=== PATIENT | female | born 1995 | race Caucasian/White ===

== ENCOUNTER 2017-01-12 01:53 | Emergency (ER) | payer BC, OTHER ==
[~2017-01-12] VITALS: Ht 157.5 cm; Wt 63.5 kg
[~2017-01-12 01:53] MED LIST: CEPH-507 PO; bcp
--- OUTSIDE RECORDS SUMMARY | 2017-01-12 02:03 | XMS REPORT | Continuity of Care Document ---
Author Author [facility] Organization [facility] Address Unknown Phone Unavailable Care Team Providers Care Insurance Rater Name Role Phone NO, LOCAL PHYSICIAN PCP Unavailable Insurance Providers Payer Name Policy Number Subscriber Name Relationship Unknown Advance Directives Directive Response Recorded Date/Time Advance Directives No 07/28/16 1:21am Resuscitation Status Full Code 07/28/16 1:21am Chief Complaint and Reason for Visit Chief Complaint Back Problems Reason for Visit Urinary tract infection Left flank pain Problems Active Problems Medical Problem Onset Date Status Left flank pain Unknown Acute Urinary tract infection Unknown Acute Medications Current Home Medications Medication Dose Units Route Directions Days/Qty Instructions Start Date [Bcp] 07/28/16 Cephalexin 500 Mg 500 Mg Oral Four Times Daily 07/28/16 Social History Social History Problem Response Recorded Date/Time Alcohol Use Denies Use 07/28/2016 1:21am Recreational Drug Use No 07/28/2016 1:21am Recent Foreign Travel No 07/28/2016 1:21am Recent Infectious Disease Exposure No 07/28/2016 1:21am Hospitalization with Isolation Denies 07/28/2016 1:21am Smoking Status Never a Smoker 07/28/2016 1:21am Recent Hopitalizations No 07/28/2016 1:21am Hospitalization with Isolation Denies 07/28/2016 1:21am Query Response Start Date Stop Date Smoking Status Never a Smoker Hospital Discharge Instructions No hospital discharge instructions. Plan of Care Discharge Date 07/28/16 4:01am Disposition 01 HOME, SELF-CARE Condition at Discharge Improved Instructions/Education Provided Urinary Tract Infection in Women (ED) Forms Provided Work Release Form Prescriptions See Medication Section Referrals NO,LOCAL PHYSICIAN - Primary Care Physician Additional Instructions/Education Drink plenty of clear liquids. Follow-up with a primary care provider within the next few days. Contact your doctor in 48 hours to review the urine culture results. This will ensure you're taking the appropriate antibiotic for your particular infection. Return to care if symptoms worsen. You may take Tylenol and/or ibuprofen for pain. Complete the entire course of your antibiotics as prescribed. All discharge instructions reviewed with patient and/or family. Voiced understanding. Functional Status No functional status results. Allergies, Adverse Reactions, Alerts No known allergies. Immunizations No immunization records. Vital Signs Acute Vital Signs Vital Response Date/Time Temperature (Fahrenheit) 97.6 degrees F (97.6 - 99.5) 07/28/2016 1:21am Temperature (Calculated Celsius) 36.54389 degrees C (36.4 - 37.5) 07/28/2016 1:21am Pulse Rate (adult) 68 bpm (60 - 90) 07/28/2016 3:56am Respiratory Rate 18 bpm (12 - 24) 07/28/2016 3:56am O2 Sat by Pulse Oximetry 99 % (88 - 100) 07/28/2016 3:56am Blood Pressure 112/80 mm Hg 07/28/2016 3:56am Blood Pressure Mean 93 mm Hg 07/28/2016 1:21am Pain Numeric Pain Scale 8 07/28/2016 1:21am Height (Feet) 5 feet 07/28/2016 1:21am Height (Inches) 2 inches 07/28/2016 1:21am Height (Calculated Centimeters) 157.321297 cm 07/28/2016 1:21am Weight (Pounds) 140 pounds 07/28/2016 1:21am Weight (Calculated Kilograms) 63.375063 kilograms 07/28/2016 1:21am Capillary Refill Capillary Refill Less Than 3 Seconds 07/28/2016 1:21am Height 5 ft 2 in Weight 140 lb Body Mass Index 25.6 kg/m^2 Results Laboratory Results Test Name Result Units Flags Reference Collection Date/Time Result Date/ Time Comments White Blood Count 10.3 10^3/uL 4.3-11.0 07/28/2016 1:45am 07/28/2016 2: 02am Red Blood Count 4.31 10^6/uL L 4.35-5.85 07/28/2016 1:45am 07/28/2016 2: 02am Hemoglobin 13.6 G/DL 11.5-16.0 07/28/2016 1:4507/28/2016 2:02am Hematocrit 39 % 35-52 07/28/2016 1:07/28/2016 2:02am Mean Corpuscular Volume 90 FL 80-99 07/28/2016 1:07/28/2016 2: 02am Mean Corpuscular Hemoglobin 32 PG 25-34 07/28/2016 1:4507/28/2016 2: 02am Mean Corpuscular Hemoglobin Concent 35 G/DL 32-36 07/28/2016 1:45 2:02am Red Cell Distribution Width 12.5 % 10.0-14.5 07/28/2016 1:2015 2:02am Platelet Count 358 10^3/uL 130-400 07/28/2016 1:07/28/2016 2:02am Mean Platelet Volume 8.8 FL 7.4-10.4 07/28/2016 1:07/28/2016 2: 02am Neutrophils (%) (Auto) 47 % 42-75 07/28/2016 1:07/28/2016 2:02am Lymphocytes (%) (Auto) 41 % 12-44 07/28/2016 1:07/28/2016 2:02am Monocytes (%) (Auto) 9 % 0-12 07/28/2016 1:07/28/2016 2:02am Eosinophils (%) (Auto) 3 % 0-10 07/28/2016 1:07/28/2016 2:02am Basophils (%) (Auto) 0 % 0-10 07/28/2016 1:07/28/2016 2:02am Neutrophils # (Auto) 4.9 X 10^3 1.8-7.8 07/28/2016 1:07/28/2016 2: 02am Lymphocytes # (Auto) 4.2 X 10^3 H 1.0-4.0 07/28/2016 1:07/28/2016 2: 02am Monocytes # (Auto) 0.9 X 10^3 0.0-1.0 07/28/2016 1:4507/28/2016 2: 02am Eosinophils # (Auto) 0.3 10^3/uL 0.0-0.3 07/28/2016 1:45am 07/28/2016 2 :02am Basophils # (Auto) 0.0 10^3/uL 0.0-0.1 07/28/2016 1:45am 07/28/2016 2: 02am Urine Color YELLOW 07/28/2016 1:36am 07/28/2016 2:03am Urine Clarity SLIGHTLY CLOUDY 07/28/2016 1:36am 07/28/2016 2:03am Urine pH 6.5 5-9 07/28/2016 1:36am 07/28/2016 2:03am Urine Specific [place] 1.020 1.016-1.022 07/28/2016 1:36am 2015 2:03am Urine Protein 1+ * NEGATIVE 07/28/2016 1:36am 07/28/2016 2:03am Urine Glucose (UA) NEGATIVE NEGATIVE 07/28/2016 1:36am 07/28/2016 2: 03am Urine RBC (Auto) 4+ * NEGATIVE 07/28/2016 1:36am 07/28/2016 2:03am Urine Ketones NEGATIVE NEGATIVE 07/28/2016 1:36am 07/28/2016 2:03am Urine Nitrite NEGATIVE NEGATIVE 07/28/2016 1:36am 07/28/2016 2:03am Urine Bilirubin NEGATIVE NEGATIVE 07/28/2016 1:36am 07/28/2016 2: 03am Urine Urobilinogen NORMAL MG/DL NORMAL 07/28/2016 1:36am 07/28/2016 2: 03am Urine Leukocyte Esterase 1+ * NEGATIVE 07/28/2016 1:36am 07/28/2016 2: 03am Urine RBC 10-25 /HPF * 07/28/2016 1:36am 07/28/2016 2:39am --- 0238 --- UR RBC (MICRO) previously reported as: Insufficent Quant. /HPF Urine WBC 2-5 /HPF 07/28/2016 1:36am 07/28/2016 2:39am --- 0239 --- UR WBC (MICRO) previously reported as: Insufficent Quant. /HPF Urine Bacteria MODERATE /HPF * 07/28/2016 1:36am 07/28/2016 2:39am -- - 07/28/169 --- UR BACT previously reported as: Insufficent Quant. /HPF Urine Squamous Epithelial Cells 2-5 /HPF 07/28/2016 1:36am 2015 2:39am Urine Crystals NONE /LPF 07/28/2016 1:36am 07/28/2016 2:39am --- 9 --- UR CRYSTALS previously reported as: Insufficent Quant. /LPF Urine Casts NONE /LPF 07/28/2016 1:36am 07/28/2016 2:39am --- 07/289 --- UR CASTS previously reported as: Insufficent Quant. /LPF Urine Mucus NEGATIVE /LPF 07/28/2016 1:36am 07/28/2016 2:39am --- 07/28/169 --- UR MUCOUS previously reported as: Insufficent Quant. /LPF Urine Culture Indicated NO 07/28/2016 1:36am 07/28/2016 2:03am Sodium Level 141 MMOL/L 135-145 07/28/2016 1:45am 07/28/2016 2:22am Potassium Level 4.1 MMOL/L 3.6-5.0 07/28/2016 1:45am 07/28/2016 2:22am Chloride Level 110 MMOL/L H 98-107 07/28/2016 1:45am 07/28/2016 2:22am Carbon Dioxide Level 21 MMOL/L 21-32 07/28/2016 1:45am 07/28/2016 2: 22am Anion Gap 10 MMOL/L 5-14 07/28/2016 1:45am 07/28/2016 2:22am Blood Urea Nitrogen 12 MG/DL 7-18 07/28/2016 1:45am 07/28/2016 2:22am Creatinine 0.81 MG/DL 0.60-1.30 07/28/2016 1:45am 07/28/2016 2:22am BUN/Creatinine Ratio 15 07/28/2016 1:45am 07/28/2016 2:22am Estimat Glomerular Filtration Rate > 60 07/28/2016 1:45am 2015 2:22am GFR INTERPRETIVE DATA UNITS FOR ESTIMATED GFR (eGFR): mL/min/1.73 M2 REFERENCE RANGE FOR ESTIMATED GFR (eGFR) eGFR NORMAL eGFR >60 MODERATELY DECREASED eGFR 30-59 SEVERLY DECREASED eGFR 15-29 KIDNEY FAILURE <15 (OR DIALYSIS) Glucose Level 113 MG/DL H 70-105 07/28/2016 1:45am 07/28/2016 2:22am Calcium Level 9.2 MG/DL 8.5-10.1 07/28/2016 1:45am 07/28/2016 2:22am Total Bilirubin 0.3 MG/DL 0.1-1.0 07/28/2016 1:45am 07/28/2016 2:22am Alkaline Phosphatase 71 U/L 40-136 07/28/2016 1:45am 07/28/2016 2:22am Aspartate Amino Transf (AST/SGOT) 14 U/L 5-34 07/28/2016 1:45am 2015 2:22am Alanine Aminotransferase (ALT/SGPT) 12 U/L 0-55 07/28/2016 1:45am 07/28 2:22am Total Protein 6.6 G/DL 6.4-8.2 07/28/2016 1:45am 07/28/2016 2:22am Albumin 3.9 G/DL 3.2-4.5 07/28/2016 1:45am 07/28/2016 2:22am Lipase 28 U/L 8-78 07/28/2016 1:4507/28/2016 2:22am Procedures No known history of procedures. Encounters Encounter Location Arrival/Admit Date Discharge/Depart Date Attending Provider Departed Emergency Room [facility] 07/28/16 1:15am 07/28 4:01am GILLIAN YARBROUGH MD Recent Diagnosis
[2017-01-12] MEDS ORDERED: RX-HYOSCYAMINE 0.125 MG SL (LEVSIN) PPK#6 SL STA (02:18)
[2017-01-12] MEDS ORDERED: KETOROLAC 60 MG/2 ML VIAL IM STA (02:18)
[2017-01-12] MEDS ORDERED: HYOSCYAMINE 0.125 MG (LEVSIN) TAB SL ONE (02:30)
--- NOTE | 2017-01-12 02:31 | ED GI ---
General Chief Complaint: Abdominal/GI Problems Stated Complaint: VOMITING,DIARRHEA,CRAMPS,RUNNY NOSE Nursing Triage Note: patient reports having abdomen cramps and starting her menstrual period. patient reports she woke up and had 'explosive' diarrhea and felt like she was going to pass out, patient reports she then vomited x 1. Sepsis Screen: No Definite Risk Source of Information: Patient Exam Limitations: No Limitations History of Present Illness Time Seen By Provider: 02:00 Initial Comments Here with report of abdominal cramping after just starting her menstrual period complicated by the fact that she started having diarrhea and vomiting tonight. Reports that during the diarrhea, which was reportedly explosive, she was also having diarrhea. This is associated with cold sweats and she felt like she was going pass out. Currently the vomiting and diarrhea are better but she still has menstrual cramps. Reports that she gets anxiety when she has to vomit. Denies blood in vomit or stool. She did take 800 mg ibuprofen for her menstrual cramps but is very sure that she vomited that up. Timing/Duration: 1-3 Hours Severity/Quality: Moderate, Cramping Location: Generalized Abdomen (associated with diarrhea), Suprapubic (menstrual ) Radiation: No Radiation Modifying Factors: Worsens With Defecating Associated Symptoms: Nausea/Vomiting Weakness Allergies and Home Medications Allergies Coded Allergies: No Known Drug Allergies (Unverified , 07/28/16) Home Medications No Active Prescriptions or Reported Meds Review of Systems Constitutional: see HPINo chills, No fever EENTM: No Symptoms Reported Respiratory: No Symptoms Reported Cardiovascular: See HPI Lightheadedness Syncope Gastrointestinal: See HPI Abdominal Pain Diarrhea Nausea Vomiting Genitourinary: See HPI Musculoskeletal: no symptoms reported Psychiatric/Neurological: See HPI AnxietyDenies Headache Past Krbotve-Diywvm-Tjyshh Hx Patient Social History Alcohol Use: Denies Use Recreational Drug Use: No Smoking Status: Never a Smoker Recent Foreign Travel: No Contact w/Someone Who Travel: No Recent Infectious Disease Expo: No Recent Hopitalizations: No Surgeries HX Surgeries: Yes (back) Surgeries: Orthopedic Respiratory Hx Respiratory Disorders: No Cardiovascular Hx Cardiac Disorders: No Neurological Hx Neurological Disorders: No Reproductive System Hx Reproductive Disorders: No Genitourinary Hx Genitourinary Disorders: Yes (history of urinary tract infections) Gastrointestinal Hx Gastrointestinal Disorders: Yes (history of C. difficile) Musculoskeletal Hx Musculoskeletal Disorders: Yes Musculoskeletal Disorders: Scoliosis Endocrine Hx Endocrine Disorders: No HEENT HX ENT Disorders: No Cancer Hx Cancer: No Psychosocial Hx Psychiatric Problems: No Integumentary HX Skin/Integumentary Disorder: No Blood Transfusions Hx Blood Disorders: No Reviewed Nursing Assessment Reviewed/Agree w Nursing PMH: Yes Physical Exam Vital Signs VS - Last 72 Hours, by Label 01/12/17 02:08 Temp 98.4 Pulse 74 Resp 18 B/P 117/68 Pulse Ox 100 O2 Delivery Room Air Capillary Refill : Less Than 3 Seconds General Appearance: WD/WN no apparent distress HEENT: PERRL/EOMI pharynx normal Neck: full range of motion supple Respiratory: lungs clear normal breath sounds Cardiovascular: regular rate, rhythm no murmur Gastrointestinal: non tender soft Extremities: non-tender normal inspection Back: normal inspection no CVA tenderness no vertebral tenderness Neurologic/Psychiatric: alert oriented x 3 Skin: normal color warm/dry Progress/Results/Core Measures Results/Orders My Orders Orders-CHIKA ECHEVARRIA MD Hyoscyamine Sl Tablet (Levsin Sl Tablet) (01/12/17 02:30) Ketorolac Injection (Toradol Injection) (01/12/17 02:18) Rx-Hyoscyamine Tab (Rx-Levsin Sl) (01/12/17 02:18) Urine Bedside (01/12/17 02:19) Medications Given in ED Current Medications Medications Dose Ordered Sig/Dedrick Route Start Time Stop Time Status Last Admin Dose Admin Hyoscyamine Sulfate 0.125 mg ONCE ONCE SL 01/12/17 02:30 01/12/17 02:31 DC 01/12/17 02:26 0.125 MG Vital Signs/I&O Vital Sign - Last 12Hours 01/12/17 02:08 Temp 98.4 Pulse 74 Resp 18 B/P 117/68 Pulse Ox 100 O2 Delivery Room Air Blood Pressure Mean: 84 Point of Care Testing Urine -Bedside: Negative Progress Note : Progress Note Seen and evaluated. We discussed different treatment options. We will try Toradol 60 mg IM for her menstrual cramps. Levsin 0.125 mg by mouth for the abdominal cramping associated with diarrhea. She declined Zofran because she states that she feels like she has to vomit when she takes that but then can't and that increases her anxiety. She would appreciate Levsin go pack. This was given. Discharged home with return precautions. Patient verbalize understanding of instructions and agreement with plan. Departure Impression Impression: Primary Impression: Menstrual cramps Additional Impression: Nausea vomiting and diarrhea Disposition: HOME, SELF-CARE Condition: Stable Departure-Patient Inst. Decision time for Depature: 02:30 Referrals: NO,LOCAL PHYSICIAN (PCP/Family) Primary Care Physician Patient Instructions: Diarrhea in Adolescents and Adults, Menstrual Cramps (DC) , Nausea and Vomiting, Adult (DC) Add. Discharge Instructions: All discharge instructions reviewed with patient and/or family. Voiced understanding. Clear liquid diet for 24 hours and then advance as tolerated. Follow-up with your Dr. in a few days for recheck. Return for worse pain, fever, vomiting, weakness, breathing problems or other concerns as needed. He may take ibuprofen 800 mg every 8 hours as needed for pain. You may take Tylenol 1000 mg every 8 hours as needed for pain. Drink plenty of fluids by taking small sips frequently. Scripts No Active Prescriptions or Reported Meds CHIKA ECHEVARRIA MD Jan 12, 2017 02:31
[2017-01-12 02:53] VITALS: BP 117/68
== END 2017-01-12 02:53 | disposition home or self-care (01) ==
LOC: EDUNIT# 01:53 → ER 01:58
DX: N94.6 Dysmenorrhea, unspecified (principal); R11.2 Nausea with vomiting, unspecified; R19.7 Diarrhea, unspecified
CPT/HCPCS: 84703; 96372; 99282

== ENCOUNTER → 2019-03-28 | Outpatient (CLI) | payer BC ==
--- NOTE | 2019-03-28 15:13 | Diagnostic Imaging Report ---
PROCEDURE: US Non-ob pelvis comp/trans. TECHNIQUE: Multiple realtime grayscale images were obtained of the pelvis in various projections endovaginally. Transabdominal imaging was also performed. INDICATION: Chronic pelvic pain. FINDINGS: Uterus measures 8.2 x 3.5 x 3.7 cm. Endometrium is 4 mm in thickness. No myometrial mass is detected. Right ovary measures 3.8 x 2.7 x 2.7 cm and the left ovary measures 4.3 x 2.5 x 2.3 cm. Left ovary contains small follicles and does demonstrate blood flow. There appears to be a probable complex cyst involving the right ovary approximately 2.1 x 1.6 cm in size. There is blood flow to the right ovary. There is some free fluid in the cul-de-sac. IMPRESSION: Probable hemorrhagic cyst involving the right ovary. No other significant abnormality is detected. Dictated by: Dictated on workstation # [id number]
== END ==
LOC: RAD 10:57
PROVIDERS: ATTEND Obstetrics & Gynecology
DX: G89.29 Other chronic pain (principal); R10.2 Pelvic and perineal pain
CPT/HCPCS: 76830; 76856

== ENCOUNTER 2019-05-09 05:56 | Outpatient (CLI) | payer BC ==
[~2019-05-09] VITALS: Ht 157.5 cm; Wt 81.6 kg
== END 2019-05-09 15:15 | disposition home or self-care (01) ==
LOC: PREOP 05:56
PROVIDERS: ATTEND Obstetrics & Gynecology
DX: Z01.818 Encounter for other preprocedural examination (principal)

== ENCOUNTER 2019-05-17 06:52 | Day surgery (SDC) | payer BC ==
[2019-05-17] VITALS (11 sets, daily range): BP systolic 93–120; BP diastolic 40–76
[~2019-05-17] VITALS: Ht 157.5 cm; Wt 81.6 kg
--- NOTE | 2019-05-17 07:02 | Progress Note-Pre Operative ---
Pre-Operative Progress Note H&P Reviewed The H&P was reviewed, patient examined and no changes noted. Date Seen by Provider: May 17, 2019 Time Seen by Provider: 07:05 Date H&P Reviewed: May 17, 2019 Time H&P Reviewed: 07:05 Pre-Operative Diagnosis: MELVA MARAVILLA DO May 17, 2019 7:02 am
[2019-05-17] MEDS ORDERED: MIDAZOLAM 2 MG/2 ML (VERSED) VIAL ONE ×2 (07:08→08:17)
[2019-05-17] MEDS ORDERED: MIDAZOLAM 2 MG/2 ML (VERSED) VIAL IV ONE (07:15)
[2019-05-17] MEDS ORDERED: D5 LR IV SOLUTION 1,000 ML IV SCH (07:28)
[2019-05-17] MEDS: LACTATED RINGERS 1,000 ML IV PRN ×2 (07:29→10:07)
[2019-05-17] MEDS ORDERED: HYDROcodone/APAP 5 MG/325 MG (LORTAB) TAB PO PRN (07:30)
[2019-05-17] MEDS ORDERED: ONDANSETRON 4 MG/2 ML (SDV) Z0FRAN IVP PRN ×2 (07:30→10:30)
[2019-05-17] MEDS ORDERED: KETOROLAC 30 MG/ML VIAL IVP ONE (07:30)
[2019-05-17 07:46] LABS: BASOPHILS % (AUTO) 0 % (0-10); EOSINOPHILS # (AUTO) 0.1 10^3/uL (0.0-0.3); EOSINOPHILS % (AUTO) 1 % (0-10); HEMATOCRIT 40 % (35-52); HEMOGLOBIN 13.6 G/DL (11.5-16.0); LYMPHOCYTES % (AUTO) 29 % (12-44); MEAN CORPUSCULAR HEMOGLOBIN 31 PG (25-34); MEAN CORPUSCULAR HGB CONC 34 G/DL (32-36); MEAN CORPUSCULAR VOLUME 90 FL (80-99); MEAN PLATELET VOLUME 8.8 FL (7.4-10.4); MONOCYTES # (AUTO) 0.8 X 10^3 (0.0-1.0); MONOCYTES % (AUTO) 11 % (0-12); NEUTROPHILS % (AUTO) 58 % (42-75); PLATELET COUNT 322 10^3/uL (130-400); RED CELL DISTRIBUTION WIDTH 13.5 % (10.0-14.5); WHITE BLOOD COUNT 6.9 10^3/uL (4.3-11.0)
[2019-05-17] MEDS ORDERED: fentaNYL INJECTION 100 MCG/2 ML AMP ONE (08:17)
--- NOTE | 2019-05-17 08:55 | Discharge Inst-Women's Service ---
Discharge Inst-Women's Serv Depart Medication/Instructions New, Converted or Re-Newed RX: RX on Chart Consults/Follow Up Additional Follow Up: Yes Orders/Referrals Dr. Carlson in 7-10 days Activity Activity: Activity as Tolerated Driving Instructions: No Driving for 1 Week NO SMOKING: NO SMOKING Nothing Inside Vagina: No Douching, No [place], No Tampons Diet Discharge Diet: No Restrictions Symptoms to Report to : Bleeding Excessive, Pain Increased, Fever Over 101 Degrees F, Vaginal Bleeding Increase, Questions/Concerns For Any Problems or Questions: Contact Your Physician Skin/Wound Care Infection Signs and Symptoms: Increased Redness, Foul Odor of Wound, Increased Drainage, Skin Itchy or Has a Rash, Increased Swelling, Temperature Above 101 F Operative Area Clean and Dry: Keep Incision Clean/Dry Stitches/Ellen/Dermabond: Dermabond, Care of Stitches Bathing Instructions: MELVA Carranza DO May 17, 2019 08:55
[2019-05-17] MEDS ORDERED: METHYLENE BLUE 0.5% (PROVAYBLUE) 50 mg/10 ml vial IV ONE (08:57)
[2019-05-17] MEDS ORDERED: BUPIVACAINE 0.25% 30 ML (SENSORCAINE) VIAL ONE (08:57)
[2019-05-17] MEDS ORDERED: LIDOCAINE PF 2% 5 ML (XYLOCAINE) VIAL ONE (08:59)
[2019-05-17] MEDS ORDERED: ONDANSETRON 4 MG/2 ML (SDV) Z0FRAN ONE (08:59)
[2019-05-17] MEDS ORDERED: DEXAMETHASONE 10 MG/ML (DECADRON) 1 ML VIAL ONE (08:59)
[2019-05-17] MEDS ORDERED: ROCURONIUM 10 MG/ML 5 ML SYRINGE IV ONE (08:59)
[2019-05-17] MEDS ORDERED: SEVOFLURANE (ULTANE) 15 ML INHAL SOLN ONE (08:59)
[2019-05-17] MEDS ORDERED: proPOfol 200 MG/20 ML (DIPRIVAN) VIAL IV ONE (08:59)
[2019-05-17] MEDS ORDERED: NEOSTIGMINE 3 MG/3 ML VIAL ONE (09:01)
[2019-05-17] MEDS ORDERED: GLYCOPYRROLATE 0.2 MG/ML (ROBINUL) 2 ML VIAL ONE ×2 (09:01→09:47)
[2019-05-17] MEDS ORDERED: IBUP-1773 PO (09:06)
[2019-05-17] MEDS ORDERED: ACHD5005 PO (09:06)
[2019-05-17] MEDS ORDERED: DOCU-143 PO (09:06)
[2019-05-17] MEDS ORDERED: HYDROmorphone 2 MG/ML VIAL (DILAUDID) ONE (09:56)
[2019-05-17] MEDS ORDERED: KETOROLAC 30 MG/ML VIAL ONE (10:00)
[2019-05-17] MEDS ORDERED: HYDROmorphone 2 MG/ML VIAL (DILAUDID) IV ONE (10:30)
--- NOTE | 2019-05-17 14:14 | Anesthesia-General Post-Op ---
General Patient Condition Mental Status/LOC: Same as Preop Cardiovascular: Satisfactory Nausea/Vomiting: Absent Respiratory: Satisfactory Pain: Controlled Complications: Absent Post Op Complications Complications None Follow Up Care/Instructions Patient Instructions None needed. Anesthesia/Patient Condition Patient Condition Patient is doing well, no complaints, stable vital signs, no apparent adverse anesthesia problems. No complications reported per nursing. MAGALIE DUNCAN CRNA May 17, 2019 14:14
--- NOTE | 2019-05-17 14:45 | OPERATIVE REPORT ---
DATE OF SERVICE: PREOPERATIVE DIAGNOSES: 1. A 23-year-old female with chronic pelvic pain. 2. Dyspareunia. 3. Unexplained infertility. POSTOPERATIVE DIAGNOSES: 1. A 23-year-old female with chronic pelvic pain. 2. Dyspareunia. 3. Unexplained infertility. 4. Endometriosis of the posterior pelvic peritoneum, uterosacral ligaments and ovarian fossa. PROCEDURE: Laparoscopic cauterization of endometriosis, peritoneal biopsies of endometriosis and chromotubation. SURGEON: Jairo Carlson DO ANESTHESIA: General endotracheal. ESTIMATED BLOOD LOSS: Minimal. URINE OUTPUT: 75 mL clear at the end of the procedure. FLUIDS: 1000 mL lactated Ringer's solution. FINDINGS: Grossly normal appearing serosal surface of the uterus itself, grossly normal appearing fallopian tubes with spillage only from the right fallopian tube, grossly normal appearing bilateral ovaries with evidence of endometriosis implants on some of the ovaries as well as the ovarian fossa extending down into the posterior cul-de-sac. SPECIMENS SENT: Peritoneal biopsies. INDICATIONS FOR PROCEDURE: This 23-year-old female is a patient established care with me with annual well woman visit. She followed up with me shortly thereafter with concerns of ongoing chronic pelvic pain. We discussed the possibility of endometriosis as her ultrasound was negative. Risks of laparoscopic diagnostic procedure as well as chromotubation was reviewed with the patient as well as indications in the preoperative H and P, this is detailed. All of her questions were again answered and reviewed in the preoperative area and after all her questions were answered, consent was obtained and the patient was taken to the operating room. OPERATIVE REPORT IN DETAIL: Once in the operating room, anesthesia was found to be adequate. She was placed in dorsal lithotomy position, prepped and draped in normal sterile fashion. A timeout was performed. Donnelly catheter was placed using sterile technique. Weighted speculum was inserted in the patient's vagina. Right angle retractor was utilized for cervix, which was grasped at 12 o'clock position using a long Allis clamp. I then placed a uterine sound to approximately a depth of 8 cm into the cervix. I then removed the uterine sound and dilated the cervix using Hegar dilators to maximum dilatation approximately 4 mm, which allows me to place the Kronner uterine manipulator, which I then placed in the uterine cavity and deployed using the manipulator balloon. I connected methylene blue dye to the tip of my Kronner uterine manipulator for chromotubation later in the procedure. All the other instruments were removed from the patient's vagina. I performed change of gloves, took my attention to the abdomen where infraumbilically I infiltrated this area using 0.25% Marcaine and make a 5 mm incision and directed with Veress needle through the incision until intraperitoneal placement was confirmed using saline drop test. I proceeded with insufflation using CO2 gas and opening pressure of 4 mmHg was noted. I proceeded to maximum pressure of 15 mmHg, at which point I removed the Veress needle and introduced a 5 mm blunt laparoscopic trocar. Once this was in place, I am able to confirm intraperitoneal placement using the laparoscope. There was no evidence of damage upon my entry site and there is grossly normal appearing upper abdominal anatomy photos obtained. The pelvis was then identified and the patient placed in steep Trendelenburg. I started the procedure by addressing the endometriosis implants which I first biopsy using a grasper through the second trocar site which I placed suprapubically in the similar fashion. This was also 5 mm trocar site. Once these are removed, I then cauterized the peritoneal edges and the other endometriosis implants that I identify in the pelvic peritoneum. Once all of these were done, I then performed a chromotubation using the methylene blue as previously described. There is easily some resistance; however, it is broken and the right tube spills dye, the left tube fails to show any evidence of patency. I then copiously irrigated the pelvis using normal saline. There was no active bleeding noted from any of my dissection planes. As the patient taken out of steep Trendelenburg, I removed insufflation and all the laparoscopic trocars. I then introduced 10 mL of 0.25% Marcaine into the peritoneal cavity for postoperative pain management and removed the trocars as well. The skin was reapproximated using Dermabond. The Kronner uterine manipulator was removed. Donnelly catheter was removed. The patient tolerated the procedure well and sent to recovery area in stable condition. Lap and sponge counts were correct at the end of the procedure. Instrument count was correct as well. Job ID: [id number] DocumentID: [id number] Dictated Date: 05/17/2019 10:56:48 Field Laborer Date: 05/17/2019 14:44:17 Dictated By: DO MISHA FINE
== END 2019-05-17 12:25 | disposition home or self-care (01) ==
LOC: SDC 06:52
PROVIDERS: ATTEND Obstetrics & Gynecology
DX: N80.3 Endometriosis of pelvic peritoneum (principal); N80.1 Endometriosis of ovary; N80.0 Endometriosis of uterus; N97.9 Female infertility, unspecified; Z11.2 Encounter for screening for other bacterial diseases; Z80.3 Family history of malignant neoplasm of breast; K21.9 Gastro-esophageal reflux disease without esophagitis; F41.9 Anxiety disorder, unspecified; M54.9 Dorsalgia, unspecified; E66.01 Morbid (severe) obesity due to excess calories; Z68.33 Body mass index [BMI] 33.0-33.9, adult
CPT/HCPCS: 36415; 84703; 85025; 86850; 86900; 86901; 87081; 88305; 94664

== ENCOUNTER 2021-10-31 12:39 | Emergency (ER) | payer BC ==
[~2021-10-31] VITALS: Ht 157 cm; Wt 83.9 kg
[~2021-10-31 12:39] MED LIST changes: +ACHD5005 PO; +DOCU-143 PO; +IBUP-1773 PO
--- NOTE | 2021-10-31 13:08 | ED GU-Female ---
General Chief Complaint: OB < 20 WEEKS Stated Complaint: VAG BLEEDING 11 WKS PREG Nursing Triage Note: Pt to ED c/o vaginal bleeding onset today. Pt is 11 weeks . Denies abd cramping, does report back pain. Source: patient Exam Limitations: no limitations History of Present Illness Date Seen by Provider: Oct 31, 2021 Time Seen by Provider: 13:00 Initial Comments Patient is a 26-year-old female who presents to the emergency department today with a chief complaint of low back pain which awoke her from sleep this morning and an onset of vaginal bleeding this morning that she states was "like a period". She is approximately 11 weeks and 2 days , G1, P0. History of severe endometriosis with previous laparoscopic surgery to remove endometrial implants. She has seen Dr. Carlson for care. She is currently on a vitamin as well as progesterone supplementation for her . She did not take any Tylenol this morning and does not request any at this time. She denies burning with urination, frequency or urgency. No diarrhea. No recent illnesses, fevers, chills, cough or congestion. No Covid concerns. All other review of systems reviewed and negative except as stated. Timing/Duration: this morning Severity/Quality: moderate Location: other (low back pain) Radiation: none Activities at Onset: none Associated Symptoms: denies symptoms Allergies and Home Medications Allergies Coded Allergies: No Known Drug Allergies (Unverified , 05/09/19) Patient Home Medication List Home Medication List Reviewed: Yes Docusate Sodium (Colace) 100 Mg Capsule, 100 MG PO BID PRN for CONSTIPATION-1ST LINE Prescribed by: MELVA CARLSON on 05/17/19905 Hydrocodone Bit/Acetaminophen (Lortab 5 Mg Tablet) 1 Tab Tab, 2 TAB PO Q6HR PRN for PAIN-MODERATE Prescribed by: MELVA CARLSON on 05/17/19905 Ibuprofen (Ibuprofen) 600 Mg Tablet, 600 MG PO Q6H Prescribed by: MELVA CARLSON on 05/17/19905 Review of Systems Review of Systems Constitutional: see HPI EENTM: no symptoms reported Respiratory: no symptoms reported Cardiovascular: no symptoms reported Gastrointestinal: no symptoms reported Genitourinary: denies burning, denies frequency; other (vaginal bleeding) : Yes LMP: Aug 13, 2021 Musculoskeletal: back pain Skin: no symptoms reported Psychiatric/Neurological: Depressed All Other Systemes Reviewed Negative Unless Noted: Yes Past Toewgcc-Iixlpf-Okvozu Hx Patient Social History Tobacco Use?: No Substance use?: No Alcohol Use?: No Immunizations Up To Date Influenza Vaccine Up-to-Date: No; Not Current Second COVID19 Vaccination Roman: April COVID19 Vaccine Adaptive Physical Educator: Modernedvin Seasonal Allergies Seasonal Allergies: Yes Past Medical History Surgeries: Yes (SPINAL FUSION, REMOVAL OF HARDWARE) Orthopedic Respiratory: No Cardiac: No Neurological: No Reproductive Disorders: No Female Reproductive Disorders: Ovarian Cyst Sexually Transmitted Disease: No HIV/AIDS: No Genitourinary: No Gastrointestinal: Yes Gastroesophageal Reflux, Chronic Constipation, Chronic Diarrhea Musculoskeletal: Yes Scoliosis, Chronic Back Pain Endocrine: No HEENT: Yes (GLASSES/CONTACTS) Loss of Vision: Denies Hearing Impairment: Denies Cancer: No Psychosocial: Yes Anxiety Integumentary: No Blood Disorders: Yes (HX ANEMIA) Adverse Reaction/Blood Tranf: No (HAS HAD BLOOD WITH NO REACTION) Physical Exam Vital Signs Vital Signs - First Documented 10/31/21 12:56 Temp 36.8 Pulse 83 Resp 16 B/P (MAP) 131/85 (100) Pulse Ox 97 O2 Delivery Room Air Capillary Refill : Less Than 3 Seconds Height, Weight, BMI Height: 5'2.00" Weight: 180lbs. 0.0oz. 81.853269qn; 34.00 BMI Method:Stated General Appearance: WD/WN, mild distress (teaful and upset) HEENT: PERRL/EOMI Neck: normal inspection Cardiovascular: regular rate, rhythm Respiratory: lungs clear, normal breath sounds, no respiratory distress, no accessory muscle use Gastrointestinal: normal bowel sounds, non tender, soft Extremities: normal range of motion, non-tender, normal inspection Neurologic/Psychiatric: no motor/sensory deficits, alert, normal mood/affect, oriented x 3, other (tearful and anxious) Skin: normal color, warm/dry Progress/Results/Core Measures Suspected Sepsis SIRS Temperature: Pulse: 83 Respiratory Rate: 16 Laboratory Tests 10/31/21 13:19: White Blood Count 10.1 Blood Pressure 131 /85 Mean: 100 Laboratory Tests 10/31/21 13:19: Platelet Count 300 Results/Orders Lab Results Laboratory Tests Test 10/31/21 13:19 10/31/21 13:21 Range/Units White Blood Count 10.1 4.3-11.0 10^3/uL Red Blood Count 4.69 3.80-5.11 10^6/uL Hemoglobin 14.6 11.5-16.0 g/dL Hematocrit 44 35-52 % Mean Corpuscular Volume 93 80-99 fL Mean Corpuscular Hemoglobin 31 25-34 pg Mean Corpuscular Hemoglobin Concent 33 32-36 g/dL Red Cell Distribution Width 12.4 10.0-14.5 % Platelet Count 300 130-400 10^3/uL Mean Platelet Volume 8.4 L 9.0-12.2 fL Immature Granulocyte % (Auto) 0 % Neutrophils (%) (Auto) 67 42-75 % Lymphocytes (%) (Auto) 24 12-44 % Monocytes (%) (Auto) 8 0-12 % Eosinophils (%) (Auto) 1 0-10 % Basophils (%) (Auto) 1 0-10 % Neutrophils # (Auto) 6.8 1.8-7.8 10^3/uL Lymphocytes # (Auto) 2.4 1.0-4.0 10^3/uL Monocytes # (Auto) 0.8 0.0-1.0 10^3/uL Eosinophils # (Auto) 0.1 0.0-0.3 10^3/uL Basophils # (Auto) 0.1 0.0-0.1 10^3/uL Immature Granulocyte # (Auto) 0.0 0.0-0.1 10^3/uL Human Chorionic Gonadotropin, Quant 6551 H <5 MIU/ML Urine Color YELLOW Urine Clarity CLEAR Urine pH 7.5 5-9 Urine Specific Barton 1.020 1.016-1.022 Urine Protein NEGATIVE NEGATIVE Urine Glucose (UA) NEGATIVE NEGATIVE Urine Ketones NEGATIVE NEGATIVE Urine Nitrite NEGATIVE NEGATIVE Urine Bilirubin NEGATIVE NEGATIVE Urine Urobilinogen 0.2 < = 1.0 MG/DL Urine Leukocyte Esterase NEGATIVE NEGATIVE Urine RBC (Auto) 3+ H NEGATIVE Urine RBC 2-5 H /HPF Urine WBC NONE /HPF Urine Squamous Epithelial Cells 2-5 /HPF Urine Crystals PRESENT H /LPF Urine Amorphous Sediment LARGE TALA PHOSPHATE H /LPF Urine Bacteria TRACE /HPF Urine Casts NONE /LPF Urine Mucus NEGATIVE /LPF Urine Culture Indicated NO My Orders Orders - IZZY CAMACHO MD Abo Rh Type (10/31/21 13:07) Cbc With Automated Diff (10/31/21 13:07) Ua Culture If Indicated (10/31/21 13:07) Hcg,Quantitative (10/31/21 13:07) Us Ob<14 Wks Sngle W/Transvag (10/31/21 13:16) Vital Signs/I&O Capillary Refill : Less Than 3 Seconds Blood Pressure Mean: 100 Progress Note #1: Time: 13:52 Progress Note Patient reports that she had serial beta quant's done early in her and reports that she had measurements as high as 33,000. Her beta quant today is 6000. Pending ultrasound but I suspect that we are dealing with a miscarriage. Will discuss with Dr. Carlson after she has her ultrasound. Blood type is O+ she does not require RhoGam administration. Hemoglobin is stable, vital signs are stable. Progress Note #2: Time: 15:23 Progress Note Patient's ultrasound did not show any heart motion. She is measuring out at approximately 9 weeks versus her estimated gestational age by dates of 11 weeks and 2 days. demise. Her quant has decreased from around the 33,000 Chip per patient down to 6000. I did call and speak with Dr. Carlson. He advi sed me to advised the patient to call his office first thing Tuesday morning and he would see her in clinic. He indicated he was fine with deferring a pelvic exam until he sees her on Tuesday. I had a discussion with the patient and her . I have given her return precautions. We had a nice talk. Patient seems calm. All questions were sought and answered. Diagnostic Imaging Diagonstic Imaging: Ultrasound Comments [facility], [place] NAME: ZHOU CALIXTO [facility] REC#: [id number] PT STATUS: REG ER : 1995 PHYSICIAN: IZZY CAMACHO MD ADMIT DATE: 10/31/21/ER Signed Date of Exam:10/31/21 US OB<14 WKS SNGLE W/TRANSVAG TECHNIQUE: Live grayscale and color Doppler ultrasound was performed over the gravid uterus. Transabdominal and transvaginal images were obtained. REASON FOR EXAM: Vaginal bleeding. COMPARISON: None. FINDINGS: A single intrauterine gestation is present with a CRL of 2.2 cm. This corresponds with an estimated gestational age of 9 weeks 0 days and SARKIS of 06/05/2022. heart tones were not observed. A yolk sac is visualized. The gestational sac demonstrates normal contours and double decidual reaction. The bilateral ovaries are well visualized and have a normal appearance. The right ovary measures 3.1 x 2.4 x 2.8 cm. The left ovary measures 2.6 x 1.9 x 2.9 cm. No free fluid is visualized within the posterior cul-de-sac. IMPRESSION: Findings are diagnostic for failed given the lack of heart tones in size of the crown-rump length. However, follow-up may still be indicated as there is reported difficulty in acquiring heart tones by the membership director. Recommend continued follow-up with serial beta hCGs and pelvic ultrasound. Dictated by: Dictated on workstation # [id number] Dict: 10/31/21 1540 Trans: 10/31/21 1551 [facility] [id number] Interpreted by: JORDYN CASANOVA DO Electronically signed by: JORDYN CASANOVA DO 10/31/21 1551 Departure Impression Primary Impression: Miscarriage Disposition: HOME, SELF-CARE Condition: Stable Departure-Patient Inst. Decision time for Depature: 15:24 Referrals: MELVA CARLSON,LOCAL PHYSICIAN (PCP) Primary Care Physician Patient Instructions: Miscarriage (DC) Add. Discharge Instructions: Drink plenty of fluids to stay well-hydrated. You can take Tylenol and/or ibuprofen as needed for cramping. Return to the emergency department for any severe pain, excessive vaginal bleeding, fevers or other emergent concerning symptoms. Please call Dr. Carlson's office first thing Tuesday morning for a follow-up appointment. IZZY CAMACHO MD Oct 31, 2021 13:08
[2021-10-31 13:24] LABS: BASOPHILS # (AUTO) 0.1 10^3/uL (0.0-0.1); BASOPHILS % (AUTO) 1 % (0-10); EOSINOPHILS # (AUTO) 0.1 10^3/uL (0.0-0.3); EOSINOPHILS % (AUTO) 1 % (0-10); HEMATOCRIT 44 % (35-52); HEMOGLOBIN 14.6 g/dL (11.5-16.0); LYMPHOCYTES # (AUTO) 2.4 10^3/uL (1.0-4.0); LYMPHOCYTES % (AUTO) 24 % (12-44); MEAN CORPUSCULAR HEMOGLOBIN 31 pg (25-34); MEAN CORPUSCULAR HGB CONC 33 g/dL (32-36); MEAN CORPUSCULAR VOLUME 93 fL (80-99); MEAN PLATELET VOLUME 8.4 fL (9.0-12.2); MONOCYTES # (AUTO) 0.8 10^3/uL (0.0-1.0); MONOCYTES % (AUTO) 8 % (0-12); NEUTROPHILS # (AUTO) 6.8 10^3/uL (1.8-7.8); NEUTROPHILS % (AUTO) 67 % (42-75); PLATELET COUNT 300 10^3/uL (130-400); WHITE BLOOD COUNT 10.1 10^3/uL (4.3-11.0)
[2021-10-31 13:38] LABS: BILIRUBIN,URINE NEGATIVE (NEGATIVE); CLARITY,URINE CLEAR; COLOR,URINE YELLOW; GLUCOSE, URINE (UA) NEGATIVE (NEGATIVE); KETONES,URINE NEGATIVE (NEGATIVE); LEUKOCYTE ESTERASE ,URINE NEGATIVE (NEGATIVE); NITRITE,URINE NEGATIVE (NEGATIVE); PH,URINE 7.5 (5-9); PROTEIN,URINE NEGATIVE (NEGATIVE)
[2021-10-31 13:51] LABS: AMORPHOUS SEDIMENT,UR LARGE AMOR PHOSPHATE /LPF; BACTERIA,URINE TRACE /HPF
--- NOTE | 2021-10-31 15:50 | Diagnostic Imaging Report ---
TECHNIQUE: Live grayscale and color Doppler ultrasound was performed over the gravid uterus. Transabdominal and transvaginal images were obtained. REASON FOR EXAM: Vaginal bleeding. COMPARISON: None. FINDINGS: A single intrauterine gestation is present with a CRL of 2.2 cm. This corresponds with an estimated gestational age of 9 weeks 0 days and SARKIS of 06/05/2022. heart tones were not observed. A yolk sac is visualized. The gestational sac demonstrates normal contours and double decidual reaction. The bilateral ovaries are well visualized and have a normal appearance. The right ovary measures 3.1 x 2.4 x 2.8 cm. The left ovary measures 2.6 x 1.9 x 2.9 cm. No free fluid is visualized within the posterior cul-de-sac. IMPRESSION: Findings are diagnostic for failed given the lack of heart tones in size of the crown-rump length. However, follow-up may still be indicated as there is reported difficulty in acquiring heart tones by the computer analyst. Recommend continued follow-up with serial beta hCGs and pelvic ultrasound. Dictated by: Dictated on workstation # [id number]
[2021-10-31 15:55] VITALS: BP 113/78
== END 2021-10-31 15:57 | disposition home or self-care (01) ==
LOC: EDUNIT# 12:39 → ER 12:42
DX: O03.9 Complete or unspecified spontaneous abortion without complication (principal); G89.29 Other chronic pain; M54.50 Low back pain, unspecified; Z79.891 Long term (current) use of opiate analgesic
CPT/HCPCS: 36415; 76801; 76817; 81000; 84702; 85025; 86900; 86901

== ENCOUNTER 2021-11-04 06:27 | Day surgery (SDC) | payer BC ==
[2021-11-04] VITALS (10 sets, daily range): BP systolic 95–109; BP diastolic 54–67
[~2021-11-04] VITALS: Ht 157.5 cm; Wt 83.5 kg
[2021-11-04 07:55] LABS: BASOPHILS % (AUTO) 1 % (0-10); EOSINOPHILS # (AUTO) 0.2 10^3/uL (0.0-0.3); EOSINOPHILS % (AUTO) 2 % (0-10); HEMATOCRIT 41 % (35-52); HEMOGLOBIN 13.9 g/dL (11.5-16.0); LYMPHOCYTES # (AUTO) 2.2 10^3/uL (1.0-4.0); LYMPHOCYTES % (AUTO) 29 % (12-44); MEAN CORPUSCULAR HEMOGLOBIN 31 pg (25-34); MEAN CORPUSCULAR HGB CONC 34 g/dL (32-36); MEAN CORPUSCULAR VOLUME 92 fL (80-99); MEAN PLATELET VOLUME 8.5 fL (9.0-12.2); MONOCYTES # (AUTO) 0.5 10^3/uL (0.0-1.0); MONOCYTES % (AUTO) 7 % (0-12); NEUTROPHILS # (AUTO) 4.7 10^3/uL (1.8-7.8); NEUTROPHILS % (AUTO) 62 % (42-75); PLATELET COUNT 295 10^3/uL (130-400); WHITE BLOOD COUNT 7.7 10^3/uL (4.3-11.0)
[2021-11-04] MEDS ORDERED: ONDANSETRON 4 MG/2 ML (SDV) Z0FRAN ONE (08:12)
[2021-11-04] MEDS ORDERED: MIDAZOLAM 2 MG/2 ML (VERSED) VIAL ONE (08:12)
[2021-11-04] MEDS ORDERED: proPOfol 200 MG/20 ML (DIPRIVAN) VIAL IV ONE ×2 (08:12→09:03)
[2021-11-04] MEDS ORDERED: LIDOCAINE PF 2% 5 ML (XYLOCAINE) VIAL ONE (08:12)
[2021-11-04] MEDS ORDERED: fentaNYL INJ 100 MCG/2 ML AMP ONE (08:12)
[2021-11-04] MEDS ORDERED: LACTATED RINGERS 1,000 ML IV PRN (08:30)
--- NOTE | 2021-11-04 08:39 | Progress Note-Pre Operative ---
Pre-Operative Progress Note H&P Reviewed The H&P was reviewed, patient examined and no changes noted. Date Seen by Provider: Nov 04, 2021 Time Seen by Provider: 08:15 Date H&P Reviewed: Nov 04, 2021 Time H&P Reviewed: 08:00 Pre-Operative Diagnosis: Missed MELVA HUTCHINS DO Nov 04, 2021 08:39
--- NOTE | 2021-11-04 08:41 | Discharge Inst-Women's Service ---
Discharge Inst-Women's Serv Depart Medication/Instructions New, Converted or Re-Newed RX: Other (Take OTC motrin as needed.) Problems Reviewed?: Yes Consults/Follow Up Additional Follow Up: Yes Orders/Referrals Dr. Goldsmith in 2 weeks Activity Activity: Activity as Tolerated Driving Instructions: You May Drive NO SMOKING: NO SMOKING Nothing Inside Vagina: No Douching, No [place], No Tampons Diet Discharge Diet: No Restrictions Symptoms to Report to : Bleeding Excessive, Pain Increased, Fever Over 101 Degrees F, Vaginal Bleeding Increase, Questions/Concerns For Any Problems or Questions: Contact Your Physician MELVA GOLDSMITH DO Nov 04, 2021 08:41
[2021-11-04] MEDS ORDERED: HYDROcodone/APAP 5 MG/325 MG (LORTAB) TAB PO PRN (08:45)
[2021-11-04] MEDS ORDERED: KETOROLAC 30 MG/ML VIAL IVP ONE (08:45)
[2021-11-04] MEDS ORDERED: D5 LR IV SOLUTION 1,000 ML IV SCH (08:45)
[2021-11-04] MEDS ORDERED: ONDANSETRON 4 MG/2 ML (SDV) Z0FRAN IVP PRN ×2 (08:45→09:45)
[2021-11-04] MEDS ORDERED: SUCCINYLCHOLINE INJ 100 MG/5 ML SYR/VIAL ONE (09:00)
[2021-11-04] MEDS ORDERED: SEVOFLURANE (ULTANE) 15 ML INHAL SOLN ONE (09:08)
[2021-11-04] MEDS ORDERED: morphine INJ 10 MG/ML 1ML (SYR OR VIAL) IVP ONE (09:45)
--- NOTE | 2021-11-04 12:54 | Anesthesia-General Post-Op ---
General Patient Condition Mental Status/LOC: Same as Preop Cardiovascular: Satisfactory Nausea/Vomiting: Absent Respiratory: Satisfactory Pain: Controlled Complications: Absent Post Op Complications Complications None Follow Up Care/Instructions Patient Instructions None needed. Anesthesia/Patient Condition Patient Condition Patient was seen this morning after the procedure and she was doing well, no complaints, stable vital signs, no apparent adverse anesthesia problems. BOOKER POSEY DO Nov 04, 2021 12:54
--- NOTE | 2021-11-04 13:50 | OPERATIVE REPORT ---
DATE OF SERVICE: PREOPERATIVE DIAGNOSIS: A 26-year-old with approximately 8-week gestation missed . POSTOPERATIVE DIAGNOSIS: A 26-year-old with approximately 8-week gestation missed . PROCEDURE: Suction D and C. SURGEON: Melva Goldsmith DO ANESTHESIA: General endotracheal. ESTIMATED BLOOD LOSS: 300 mL. URINE OUTPUT: 50 mL clear at the end of the procedure. FLUIDS: 800 mL lactated Ringer's solution. FINDINGS: Grossly normal-appearing external female genitalia. Moderate amount of products of conception. SPECIMEN SENT: Products of conception. INDICATIONS FOR PROCEDURE: This 26-year-old female was a patient who had come to the office after an ER visit this week and it is identified and diagnosed her with a missed AB. The patient desired surgical treatment and passage of the tissue. She did not wish to have miscarry at home; therefore, we discussed the risk of this versus miscarriage at home and she wished to proceed with a suction D and C. Risks of procedure were discussed with the patient in detail and after all her questions were answered, consent was obtained in the preoperative area, the patient was taken to the operating room. OPERATIVE REPORT IN DETAIL: Once in the operating room, anesthesia was found to be adequate. She was placed in dorsal lithotomy position, prepped and draped in normal sterile fashion. Timeout was performed. I then placed a weighted speculum into the patient's vagina. Right angle retractor was used to visualize the cervix, which was grasped at 12 o'clock position using a long Allis clamp. I then gently sound the uterine cavity, depth was found to be 8 cm. I selected a #8 rigid suction curette and after dilating the cervix using Hanks dilators, I placed the suction curette into the uterine cavity where I applied [place] suction to a maximum suction of approximately 75 mmHg, at which point I rotated the suction curette and methodically cleared the endometrium and uterine cavity of all products of conception. This was done on several passes until a gentle uterine cry is appreciated on a gentle sharp uterine curettage, after which bleeding is limited. There is a small area on the cervix is bleeding somewhat. Therefore, it was made hemostatic using silver nitrate. After that, all instruments were removed from the patient's vagina. The patient tolerated the procedure well and sent to recovery area in stable condition. Lap and sponge counts were correct at the end of the procedure. Instrument counts correct as well. Job ID: [id number] DocumentID: [id number] Dictated Date: 11/04/2021 09:28:11 Methods Analyst Data Processing Date: 11/04/2021 13:49:11 Dictated By: MELVA GOLDSMITH DO
== END 2021-11-04 11:35 | disposition home or self-care (01) ==
LOC: SDC 06:27
PROVIDERS: ATTEND Obstetrics & Gynecology
DX: O02.1 Missed abortion (principal); Z87.891 Personal history of nicotine dependence
CPT/HCPCS: 36415; 85025; 86850; 86900; 86901; 87081; 88305

== ENCOUNTER 2022-03-19 07:48 | Emergency (ER) | payer BC ==
[~2022-03-19] VITALS: Ht 157 cm; Wt 87.0 kg
[2022-03-19] MEDS ORDERED: LACTATED RINGERS 1,000 ML IV ONE (08:15)
[2022-03-19] MEDS ORDERED: fentaNYL INJ 100 MCG/2 ML AMP IVP ONE (08:15)
[2022-03-19] MEDS ORDERED: ONDANSETRON 4 MG/2 ML (SDV) Z0FRAN IVP ONE (08:15)
[2022-03-19 08:18] LABS: BASOPHILS # (AUTO) 0.1 10^3/uL (0.0-0.1); BASOPHILS % (AUTO) 1 % (0-10); EOSINOPHILS # (AUTO) 0.1 10^3/uL (0.0-0.3); EOSINOPHILS % (AUTO) 2 % (0-10); HEMATOCRIT 39 % (35-52); HEMOGLOBIN 13.8 g/dL (11.5-16.0); LYMPHOCYTES # (AUTO) 2.4 10^3/uL (1.0-4.0); LYMPHOCYTES % (AUTO) 27 % (12-44); MEAN CORPUSCULAR HEMOGLOBIN 31 pg (25-34); MEAN CORPUSCULAR HGB CONC 35 g/dL (32-36); MEAN CORPUSCULAR VOLUME 90 fL (80-99); MEAN PLATELET VOLUME 8.7 fL (9.0-12.2); MONOCYTES # (AUTO) 0.7 10^3/uL (0.0-1.0); MONOCYTES % (AUTO) 8 % (0-12); NEUTROPHILS # (AUTO) 5.6 10^3/uL (1.8-7.8); NEUTROPHILS % (AUTO) 63 % (42-75); PLATELET COUNT 325 10^3/uL (130-400); WHITE BLOOD COUNT 8.9 10^3/uL (4.3-11.0)
--- NOTE | 2022-03-19 08:20 | ED General ---
General Chief Complaint: Abdominal/GI Problems Stated Complaint: ABD / BACK PAIN Nursing Triage Note: STARTED THIS AM WITH SHARP RIGHT PAIN IN BACK THAT MOVES TO THE SIDE AND TO THE FRONT ABDOMEN. (DUONG BUCIO) History of Present Illness Time Seen by Provider: 08:05 Initial Comments 26 year old female presents via private vehicle with al , Ana, for r ight lower quadrant abdominal pain. She reports being at the gym exercising this morning at 4:45 am and had mild Right lower back pack pain that she thought may be gas pain. She took Gas-X with no relief of symptoms and proceeded to have sever right lower back pain that dropped her to her knees. That pain has since spread to her RLQ abdomen. She rates the pain as an 8/10 at this time. She reports increased pain with movement and that the ride here in the car was incredibly uncomfortable. She reports feeling particularly tired with some chills yesterday but no fevers, chest pain, shortness of breath, abdmonial pain, N/V/D, dysuria, hematuria, or hematochezia leading up to this morning. She does report having an increased sense that she needs to pee. She has had nausea associated with the pain this morning and could be seen vomiting upon leaving the room. Her past medical history is significant for a miscarriage in October requiring D&C procedure. She is sexually active at this time and thinks her period was recent but she isn't able to tell me how recent. Timing/Duration: 1-3 Hours (DUONG BUCIO) Date Seen by Provider: March 19, 2022 (GILLIAN YARBROUGH MD) Allergies and Home Medications Allergies Coded Allergies: diphenhydramine (Verified Adverse Reaction, Unknown, 11/04/21) STATES SIGNIFICANTLY LOWERS HEART RATE Patient Home Medication List Home Medication List Reviewed: Yes (GILLIAN YARBROUGH MD) Cephalexin (Cephalexin) 500 Mg Tablet, 500 MG PO TID Prescribed by: GILLIAN JUNG on 03/19/22 1258 Hydrocodone/Acetaminophen (Hydrocodone-Acetamin 5-325 mg) 5 Mg-325 Mg Tablet, 1- 2 TAB PO Q4H PRN for PAIN-MODERATE (5-7) Prescribed by: GILLIAN JUNG on 03/19/22 1258 Ibuprofen (Ibuprofen) 600 Mg Tablet, 600 MG PO Q6H Prescribed by: MELVA GOLDSMITH on 05/17/19 0906 Ondansetron (Ondansetron Odt) 4 Mg Tab.rapdis, 4 MG SL Q4H PRN for NAUSEA/VOMITING Prescribed by: GILLIAN JUNG on 03/19/22 1258 Promethazine HCl (Promethazine Tablet) 25 Mg Tablet, 25 MG PO Q6H PRN for NAUSEA/VOMITING-2ND LINE Prescribed by: GILLIAN JUNG on 03/19/22 1258 Review of Systems Review of Systems Constitutional: see HPI EENTM: no symptoms reported Respiratory: short of breath (She has felt short of breath since the pain became severe) Cardiovascular: see HPI Gastrointestinal: abdominal pain (RLQ); No constipation, No diarrhea, No hematemesis; nausea, vomiting Genitourinary: No dysuria, No hematuria : No (She thinks her period was recent is unlikely to be ) Musculoskeletal: back pain (Pain originated in right lower back) Skin: no symptoms reported Psychiatric/Neurological: No Symptoms Reported Hematologic/Lymphatic: No Symptoms Reported Immunological/Allergic: no symptoms reported (DUONG BUCIO) Past Xprxizx-Ppzltz-Keffji Hx Patient Social History Tobacco Use?: No Use of E-Cig and/or Vaping dev: No Substance use?: No Alcohol Use?: No (DUONG BUCIO) Immunizations Up To Date First/Initial COVID19 Vaccinat: 01/02/21 Second COVID19 Vaccination Roman: 02/19/21 (DUONG BUCIO) Seasonal Allergies Seasonal Allergies: Yes (DUONG BUCIO) Past Medical History Surgeries: Yes (SPINAL FUSION, REMOVAL OF HARDWARE,LAPAROSCOPY,CHROMOTUBATION) Orthopedic Respiratory: No Cardiac: No Neurological: No Reproductive Disorders: No Female Reproductive Disorders: Endometriosis (Reports having laparoscopy and ablation procedure for endometriosis), Ovarian Cyst Sexually Transmitted Disease: No HIV/AIDS: No Genitourinary: No Gastrointestinal: Yes Gastroesophageal Reflux, Chronic Constipation, Chronic Diarrhea Musculoskeletal: Yes Scoliosis, Chronic Back Pain Endocrine: No HEENT: Yes (GLASSES/CONTACTS) Loss of Vision: Denies Hearing Impairment: Denies Cancer: No Psychosocial: Yes Anxiety Integumentary: No Blood Disorders: Yes (HX ANEMIA) Adverse Reaction/Blood Tranf: No (HAS HAD BLOOD WITH NO REACTION) (DUONG BUCIO) Physical Exam Vital Signs Vital Signs - First Documented 03/19/22 03/19/22 07:55 14:09 Temp 36.0 Pulse 66 Resp 18 B/P (MAP) 143/106 (118) Pulse Ox 100 O2 Delivery Room Air (GILLIAN YARBROUGH MD) Vital Signs Capillary Refill : Less Than 3 Seconds (DUONG BUCIO) Height, Weight, BMI Height: 5'2.00" Weight: 180lbs. 0.0oz. 81.036969lo; 35.00 BMI Method:Stated General Appearance: Other (Patient was sitting in bed with knees to her chest and irregular breathing due to obvious discomfort. Shortly upon leaving I witnessed the patient walking to the bathroom and with significant bending at the waist. ) Neck: Normal Inspection, Non Tender, Supple Respiratory: Lungs Clear, Normal Breath Sounds, No Respiratory Distress Cardiovascular: Regular Rate, Rhythm, No Edema, No Murmur, Normal Peripheral Pulses Gastrointestinal: Normal Bowel Sounds, Guarding (RLQ guarding and bending at the waist while walking), Tenderness (9/10 pain with light palpation of RLQ. Didn't tolerate deep palpation and unclear if she has true rebound tenderness. Positive Rovsing's sign. Mild discomfort when palpating RUQ and LUQ.) Back: Other (Pain in RLQ of abdomen when palpating Right lower back ) Extremity: No Pedal Edema, Other (PAtient was unable to straighten her right leg due to RLQ abdominal pain) Neurologic/Psychiatric: Alert, Oriented x3 Skin: Normal Color, Diaphoresis Lymphatic: No Adenopathy (DUONG BUCIO) Progress/Results/Core Measures Suspected Sepsis SIRS Temperature: Pulse: 66 Respiratory Rate: 18 Laboratory Tests 03/19/22 08:10: White Blood Count 8.9 Blood Pressure 143 /106 Mean: 118 Laboratory Tests 03/19/22 08:10: Creatinine 0.86, Platelet Count 325, Total Bilirubin 0.4 (DUONG BUCIO) Results/Orders Lab Results Laboratory Tests Test 03/19/22 08:10 03/19/22 08:21 Range/Units White Blood Count 8.9 4.3-11.0 10^3/uL Red Blood Count 4.39 3.80-5.11 10^6/uL Hemoglobin 13.8 11.5-16.0 g/dL Hematocrit 39 35-52 % Mean Corpuscular Volume 90 80-99 fL Mean Corpuscular Hemoglobin 31 25-34 pg Mean Corpuscular Hemoglobin Concent 35 32-36 g/dL Red Cell Distribution Width 12.8 10.0-14.5 % Platelet Count 325 130-400 10^3/uL Mean Platelet Volume 8.7 L 9.0-12.2 fL Immature Granulocyte % (Auto) 0 % Neutrophils (%) (Auto) 63 42-75 % Lymphocytes (%) (Auto) 27 12-44 % Monocytes (%) (Auto) 8 0-12 % Eosinophils (%) (Auto) 2 0-10 % Basophils (%) (Auto) 1 0-10 % Neutrophils # (Auto) 5.6 1.8-7.8 10^3/uL Lymphocytes # (Auto) 2.4 1.0-4.0 10^3/uL Monocytes # (Auto) 0.7 0.0-1.0 10^3/uL Eosinophils # (Auto) 0.1 0.0-0.3 10^3/uL Basophils # (Auto) 0.1 0.0-0.1 10^3/uL Immature Granulocyte # (Auto) 0.0 0.0-0.1 10^3/uL Sodium Level 138 135-145 MMOL/L Potassium Level 4.1 3.6-5.0 MMOL/L Chloride Level 109 H 98-107 MMOL/L Carbon Dioxide Level 19 L 21-32 MMOL/L Anion Gap 10 5-14 MMOL/L Blood Urea Nitrogen 13 7-18 MG/DL Creatinine 0.86 0.60-1.30 MG/DL Estimat Glomerular Filtration Rate 95 BUN/Creatinine Ratio 15 Glucose Level 128 H 70-105 MG/DL Calcium Level 9.4 8.5-10.1 MG/DL Corrected Calcium 9.2 8.5-10.1 MG/DL Total Bilirubin 0.4 0.1-1.0 MG/DL Aspartate Amino Transf (AST/SGOT) 18 5-34 U/L Alanine Aminotransferase (ALT/SGPT) 20 0-55 U/L Alkaline Phosphatase 75 40-136 U/L C-Reactive Protein High Sensitivity 0.21 0.00-0.50 MG/DL Total Protein 7.3 6.4-8.2 GM/DL Albumin 4.3 3.2-4.5 GM/DL Serum Test, Qualitative NEGATIVE NEGATIVE Urine Color YELLOW Urine Clarity CLEAR Urine pH 6.0 5-9 Urine Specific [place] >=1.030 1.016-1.022 Urine Protein NEGATIVE NEGATIVE Urine Glucose (UA) NEGATIVE NEGATIVE Urine Ketones NEGATIVE NEGATIVE Urine Nitrite NEGATIVE NEGATIVE Urine Bilirubin NEGATIVE NEGATIVE Urine Urobilinogen 0.2 < = 1.0 MG/DL Urine Leukocyte Esterase NEGATIVE NEGATIVE Urine RBC (Auto) 2+ H NEGATIVE Urine RBC 2-5 H /HPF Urine WBC RARE /HPF Urine Squamous Epithelial Cells 2-5 /HPF Urine Crystals PRESENT H /LPF Urine Amorphous Sediment LARGE TALA URATES H /LPF Urine Bacteria FEW H /HPF Urine Casts NONE /LPF Urine Mucus NEGATIVE /LPF Urine Culture Indicated YES (GILLIAN YARBROUGH MD) My Orders Orders - GILLIAN YARBROUGH MD Ua Culture If Indicated (03/19/22 07:50) Cbc With Automated Diff (03/19/22 08:07) Comprehensive Metabolic Panel (03/19/22 08:07) Hs C Reactive Protein (03/19/22 08:07) Hcg,Qualitative Serum (03/19/22 08:07) Ed Iv/Invasive Line Start (03/19/22 08:07) Lactated Ringers (Lr 1000 Ml Iv Solution (03/19/22 08:15) Fentanyl Inj (Sublimaze Injection) (03/19/22 08:15) Ondansetron Injection (Zofran Injectio (03/19/22 08:15) Morphine Injection (Morphine Injection (03/19/22 08:48) Urine Culture (03/19/22 08:21) Us Renal Limited [id number] (03/19/22 09:41) Morphine Injection (Morphine Injection (03/19/22 09:52) Ct Abd/Pelvis Wo(Kidney Stone) (03/19/22 10:48) Us Non Ob Pelvis Comp/Transvag (03/19/22 09:41) Ketorolac Injection (Toradol Injection) (03/19/22 12:45) Abdomen/Kub 1view (03/19/22 12:42) Ns Iv 500 Ml (Sodium Chloride 0.9%) (03/19/22 13:00) Promethazine Injection (Phenergan Injec (03/19/22 13:00) (GILLIAN YARBROUGH MD) Medications Given in ED Current Medications Medications Dose Ordered Sig/Dedrick Route Start Time Stop Time Status Last Admin Dose Admin Fentanyl Citrate 50 mcg ONCE ONCE IVP 03/19/22 08:15 03/19/22 08:16 DC 03/19/22 08:16 50 MCG Ketorolac Tromethamine 30 mg ONCE ONCE IVP 03/19/22 12:45 03/19/22 12:46 DC 03/19/22 12:48 30 MG Lactated Ringer's 1,000 ml @ 0 mls/hr Q0M ONCE IV 03/19/22 08:15 03/19/22 08:16 DC 03/19/22 08:16 999 MLS/HR Ondansetron HCl 8 mg ONCE ONCE IVP 03/19/22 08:15 03/19/22 08:16 DC 03/19/22 08:15 8 MG Promethazine HCl 25 mg ONCE ONCE IVP 03/19/22 13:00 03/19/22 13:01 DC 03/19/22 13:14 25 MG Sodium Chloride 500 ml @ 0 mls/hr Q0M ONCE IV 03/19/22 13:00 03/19/22 13:01 DC 03/19/22 13:14 999 MLS/HR (GILLIAN YARBROUGH MD) Vital Signs/I&O 03/19/22 03/19/22 03/19/22 07:55 14:09 14:10 Temp 36.0 36.5 36.5 Pulse 66 63 63 Resp 18 16 16 B/P (MAP) 143/106 (118) 116/74 116/74 Pulse Ox 100 100 O2 Delivery Room Air Room Air Room Air (GILLIAN YARBROUGH MD) Vital Signs/I&O Capillary Refill : Less Than 3 Seconds (DUONG BUCIO) Blood Pressure Mean: 118 Progress Note : Progress Note 0945 Labs returned unremarkable with no WBC elevation or elevated CRP making appendicitis less likely at this time. Urinalysis showed small amounts of RBCs with urine crystals present and few bacteria present. This may indicate kidney stone which is consistent with her presentation, but we would expect more RBC's to be present in her urine. blood test was negative making actopic incredibly unlikely. Review of past medical records showed an ultrasound on 03/28/22 indicating probable hemorrhagic cyst involving her right ovary. A ruptured ovarian cyst could be causing her current presentation as could ovarian torsion although this would be less likely. Pelvic Ultrasound versus CT w/out contrast was considered. Pelvic ultrasound would be a better assessment than CT for assessing ovarian cysts and ovarian torsion and has no radiation exposure involved. We can also assess kidney and look for signs of hydronephrosis with the ultrasound exam. Determined this would be the more appropriate first step at this time. Discussed this with the patient who agreed to start with ultrasound for now. 10:50 Ultrasound results showed mild hydroureteronephrosis indicating likely kidney stone although it was unable to be seen via ultrasound. Discussed these findings with patient who agreed to CT w/out contrast. (DUONG BUCIO) Diagnostic Imaging Diagonstic Imaging: Ultrasound Plain Films/CT/US/NM/MRI: other (Right renal) Comments Right renal ultrasound discussed with office equipment technician and preliminary report reviewed. See report below: NAME: ZHOU CALIXTO [facility] REC#: [id number] PT STATUS: REG ER : 1995 PHYSICIAN: GILLIAN YARBROUGH MD ADMIT DATE: 03/19/22/ER Draft Date of Exam:03/19/22 US RENAL LIMITED [id number] INDICATION: Right lower quadrant flank and back pain. COMPARISON: None TECHNIQUE: Limited renal sonogram of the right kidney was performed. FINDINGS: Right kidney measures 10.2 cm in length. There is mild hydronephrosis. Visualized portions of the right ureter also mildly prominent. No calculi are seen. No solid mass is identified. Cortical thickness and cortical medullary differentiation are maintained. There is no ascites. Limited views of the pelvis show minimally distended urinary bladder. IMPRESSION: 1. Mild right-sided hydroureteronephrosis. Dictated on workstation # [id number] Dict: 03/19/22 1109 Trans: 03/19/22 1117 CVB [id number] Interpreted by: LOVE CHANG MD Diagonstic Imaging: CT Plain Films/CT/US/NM/MRI: abdomen, pelvis Comments CT abdomen and pelvis viewed by me and draft report reviewed. See report below: NAME: ZHOU CALIXTO [facility] REC#: [id number] PT STATUS: REG ER : 1995 PHYSICIAN: GILLIAN YARBROUGH MD ADMIT DATE: 03/19/22/ER Draft Date of Exam:03/19/22 CT ABD/PELVIS WO(KIDNEY STONE) PROCEDURE: CT urinary tract, rule out kidney stone. TECHNIQUE: Multiple contiguous axial images were obtained through the abdomen and pelvis without the use of intravenous contrast. Auto Exposure Controls were utilized during the CT exam to meet ALARA standards for radiation dose reduction. INDICATION: Right flank and back pain COMPARED with study 07/28/2016 and correlated with ultrasound earlier today. A mild degree of right hydronephrosis is present and there is some mild stranding of the right perinephric fat. There are intrarenal calculi in the right kidney new from prior measuring 3 mm and 2 mm. There is a new right hemipelvic punctate calcification measuring 2 mm on image 154 series 2. It cannot be clearly demonstrated to be within the distal right ureter but it is suspicious. The bladder itself is not well distended, unopacified and nonfocal. There is trace pelvic free fluid within physiologic limits of a female patient of this age. The left kidney unobstructed and normal. The liver, spleen, adrenals, pancreas, gallbladder and bile ducts all nonacute. The aorta is nonaneurysmal. IMPRESSION: Mild right hydronephrosis and perinephric stranding. Intrarenal right kidney stones. Punctate 2 mm right pelvic calcification may be in the distal right ureter proximal to the UVJ and accounting for the dilatation. Trace pelvic free fluid felt to be physiologic. The remaining abdominal pelvic solid and hollow viscera unremarkable. Dictated on workstation # [id number] Dict: 03/19/22 1108 Trans: 03/19/[address] [facility] [id number] Interpreted by: MYRIAM MALONEY (GILLIAN YARBROUGH MD) Departure Impression Primary Impression: Right ureteral stone Additional Impression: Nausea & vomiting Qualified Codes: R11.2 - Nausea with vomiting, unspecified Disposition: 01 HOME, SELF-CARE Condition: Improved Departure-Patient Inst. Decision time for Depature: 12:54 (GILLIAN YARBROUGH MD) Referrals: NO,LOCAL PHYSICIAN (PCP) Primary Care Physician MENDOZA RAMIREZ MD Patient Instructions: Kidney Stone Diet, Kidney Stones in Adults Add. Discharge Instructions: Drink plenty of clear liquids to stay well-hydrated. Review the attached materials to educate yourself on kidney stones and kidney stone diet. Strain your urine and bring any stones or fragments collected to your follow-up appointment. Follow-up with your primary care provider and/or Dr. Ramirez (urologist) as soon as possible. See contact information below. You may use ibuprofen up to 600 mg every 6 hours as needed for pain. Add hydrocodone as prescribed for pain not controlled by ibuprofen. Use the Zofran (ondansetron) as prescribed for primary nausea control. Add Phenergan (promethazine) for nausea not controlled by Zofran. Complete your antibiotic as prescribed to prevent infection associated with this kidney stone. Return to the emergency room if you have worsening symptoms or develop new symptoms such as fever despite following these instructions. All discharge instructions reviewed with patient and/or family. Voiced understanding. Scripts Cephalexin (Cephalexin) 500 Mg Tablet 500 MG PO TID, #20 TAB Prov: GILLIAN YARBROUGH MD 03/19/22 Hydrocodone/Acetaminophen (Hydrocodone-Acetamin 5-325 mg) 5 Mg-325 Mg Tablet 1-2 TAB PO Q4H PRN for PAIN-MODERATE (5-7), #20 TAB Prov: GILLIAN YARBROUGH MD 03/19/22 Promethazine HCl (Promethazine Tablet) 25 Mg Tablet 25 MG PO Q6H PRN for NAUSEA/VOMITING-2ND LINE, #10 TAB Prov: GILLIAN YARBROUGH MD 03/19/22 Ondansetron (Ondansetron Odt) 4 Mg Tab.rapdis 4 MG SL Q4H PRN for NAUSEA/VOMITING, #10 TAB Prov: GILLIAN YARBROUGH MD 03/19/22 Medical Student Attestation and Attending Note: I have personally interviewed and examined this patient along with Duong Bucio, MS 3. I have reviewed student documentation including history, physical, and assessments. I agree with the documentation except where otherwise noted. Of note, the ultrasound discussed above in which a possible hemorrhagic cyst was identified was performed in 2018 rather than 2021. Exam: General: Alert, oriented, mild acute distress, well developed HEENT: Normocephalic and atraumatic Heart: Regular rate and rhythm without murmur Lungs: Clear to auscultation bilaterally with normal effort Abdomen: Soft, tender to percussion and palpation in the right lower quadrant with voluntary guarding and Rovsing sign, nondistended, normal bowel sounds Neuropsych: Alert, oriented, no focal deficits Skin: Warm and dry without rashes Progression of work-up revealed no definite cause for her pain on ultrasound. There was hydronephrosis noted of the right ureter and kidney. No stone was definitively seen. I discussed the option of obtaining a CT scan to further evaluate location and size of suspected ureteral stone. Risks and benefits were discussed with the patient. She agrees to proceed with CT scan as she wants to be certain no immediate interventions are needed to evacuate the ureteral stone. CT revealed a small stone in the right UVJ. See discharge instructions for further discussion. (GILLIAN YARBROUGH MD) Copy Copies To 1: MENDOZA RAMIREZ MD, CARSON March 19, 2022 08:20 GILLIAN YARBROUGH MD March 19, 2022 11:29
[2022-03-19 08:34] LABS: BILIRUBIN,URINE NEGATIVE (NEGATIVE); CLARITY,URINE CLEAR; COLOR,URINE YELLOW; GLUCOSE, URINE (UA) NEGATIVE (NEGATIVE); KETONES,URINE NEGATIVE (NEGATIVE); LEUKOCYTE ESTERASE ,URINE NEGATIVE (NEGATIVE); NITRITE,URINE NEGATIVE (NEGATIVE); PROTEIN,URINE NEGATIVE (NEGATIVE)
[2022-03-19 08:35] LABS: ALBUMIN 4.3 GM/DL (3.2-4.5); POTASSIUM 4.1 MMOL/L (3.6-5.0)
[2022-03-19 08:37] LABS: CALCIUM 9.4 MG/DL (8.5-10.1)
[2022-03-19 08:38] LABS: TOTAL PROTEIN 7.3 GM/DL (6.4-8.2)
[2022-03-19 08:40] LABS: BILIRUBIN,TOTAL 0.4 MG/DL (0.1-1.0)
[2022-03-19 08:42] LABS: CREATININE SERUM 0.86 MG/DL (0.60-1.30)
[2022-03-19] MEDS ORDERED: morphine INJ 10 MG/ML 1ML (SYR OR VIAL) IVP STA ×2 (08:48→09:52)
[2022-03-19 09:05] LABS: WBC,URINE RARE /HPF
[2022-03-19 09:06] LABS: AMORPHOUS SEDIMENT,UR LARGE AMOR URATES /LPF; BACTERIA,URINE FEW /HPF
--- NOTE | 2022-03-19 11:18 | Diagnostic Imaging Report ---
INDICATION: Right lower quadrant flank and back pain. COMPARISON: None TECHNIQUE: Limited renal sonogram of the right kidney was performed. FINDINGS: Right kidney measures 10.2 cm in length. There is mild hydronephrosis. Visualized portions of the right ureter also mildly prominent. No calculi are seen. No solid mass is identified. Cortical thickness and cortical medullary differentiation are maintained. There is no ascites. Limited views of the pelvis show minimally distended urinary bladder. IMPRESSION: 1. Mild right-sided hydroureteronephrosis. Dictated by: Dictated on workstation # [id number]
--- NOTE | 2022-03-19 11:20 | Diagnostic Imaging Report ---
PROCEDURE: CT urinary tract, rule out kidney stone. TECHNIQUE: Multiple contiguous axial images were obtained through the abdomen and pelvis without the use of intravenous contrast. Auto Exposure Controls were utilized during the CT exam to meet ALARA standards for radiation dose reduction. INDICATION: Right flank and back pain COMPARED with study 07/28/2016 and correlated with ultrasound earlier today. A mild degree of right hydronephrosis is present and there is some mild stranding of the right perinephric fat. There are intrarenal calculi in the right kidney new from prior measuring 3 mm and 2 mm. There is a new right hemipelvic punctate calcification measuring 2 mm on image 154 series 2. It cannot be clearly demonstrated to be within the distal right ureter but it is suspicious. The bladder itself is not well distended, unopacified and nonfocal. There is trace pelvic free fluid within physiologic limits of a female patient of this age. The left kidney unobstructed and normal. The liver, spleen, adrenals, pancreas, gallbladder and bile ducts all nonacute. The aorta is nonaneurysmal. IMPRESSION: Mild right hydronephrosis and perinephric stranding. Intrarenal right kidney stones. Punctate 2 mm right pelvic calcification may be in the distal right ureter proximal to the UVJ and accounting for the dilatation. Trace pelvic free fluid felt to be physiologic. The remaining abdominal pelvic solid and hollow viscera unremarkable. Dictated by: Dictated on workstation # [id number]
--- NOTE | 2022-03-19 11:39 | Diagnostic Imaging Report ---
PROCEDURE: US Non-ob pelvis comp/trans. TECHNIQUE: Multiple realtime grayscale images were obtained of the pelvis in various projections endovaginally. Transabdominal imaging was also performed. INDICATION: Right lower quadrant pain. FINDINGS: The uterus measures 9 x 3.7 x 5.5 cm. Endometrial stripe is 7 mm. Right ovary measures 3.8 x 2.9 x 2.8 cm. There is a 1.5 cm thick-walled cyst with some internal debris. Left ovary measures 3.6 x 2 x 2 cm. Normal follicular cyst. The normal blood flow to both ovaries. There is no free fluid. IMPRESSION: The complex cyst in the right ovary measuring 1.5 cm. This may represent hemorrhagic cyst. If symptoms persist would consider a followup ultrasound in 1-2 months. Dictated by: Dictated on workstation # [id number]
[2022-03-19] MEDS ORDERED: KETOROLAC 30 MG/ML VIAL IVP ONE (12:45)
[2022-03-19] MEDS ORDERED: ACHD5005 PO (12:58)
[2022-03-19] MEDS ORDERED: PROM25TA14 PO (12:58)
[2022-03-19] MEDS ORDERED: CEPH500T PO (12:58)
[2022-03-19] MEDS ORDERED: ONDA4TAB11 SL (12:58)
[2022-03-19] MEDS ORDERED: NS IV 500 ML 500 ML IV ONE (13:00)
[2022-03-19] MEDS ORDERED: PROMETHAZINE INJ 25 MG/ML (PHENERGAN) AMP IVP ONE (13:00)
--- NOTE | 2022-03-19 13:12 | Diagnostic Imaging Report ---
Indication: Right flank pain KUB 12:55 PM There are 2 small calcifications in the right kidney that could be calculi. There is 1 mm past the mid right ureterovesical junction that could be calculus. Bowel gas pattern is normal. IMPRESSION: Probable right nephrolithiasis with questionable small calculus distal right ureter. Dictated by: Dictated on workstation # [id number]
[2022-03-19 14:10] VITALS: BP 116/74
== END 2022-03-19 14:30 | disposition home or self-care (01) ==
LOC: EDUNIT# 07:48 → ER 07:49
DX: N13.2 Hydronephrosis with renal and ureteral calculous obstruction (principal); Z32.02 Encounter for pregnancy test, result negative
CPT/HCPCS: 36415; 74018; 74176; 76775; 76830; 76856; 80053; 81000; 84703; 85025; 86141; 87088

== ENCOUNTER → 2022-10-01 | Outpatient (CLI) | payer BC ==
[~2022-10-01] MED LIST changes: +CEPH500T PO; +ONDA4TAB11 SL; +PROM25TA14 PO
--- NOTE | 2022-10-01 17:41 | Diagnostic Imaging Report ---
INDICATION: Renal stones Abdominal film obtained at 1050 a.m. Abdominal bowel gas pattern is unremarkable. There are faint calcifications overlying the right renal shadow. There are no significant calcifications over the left side. There are no significant pelvic calcifications. IMPRESSION: Faint probable calcifications overlying the right renal shadow are similar to 03/19/2022. No new abnormality is seen. Dictated by: Dictated on workstation # [id number]
== END ==
LOC: RAD 09:59
PROVIDERS: ATTEND Urology
DX: N20.0 Calculus of kidney (principal)
CPT/HCPCS: 74018

== ENCOUNTER 2023-08-25 07:45 | Emergency (ER) | payer OTHER ==
[~2023-08-25] VITALS: Ht 157.5 cm; Wt 68.0 kg
[2023-08-25] MEDS ORDERED: NS IV 1000 ML 1,000 ML IV STA (08:13)
--- NOTE | 2023-08-25 08:18 | ED Abdominal Pain ---
General Chief Complaint: - Reproductive Stated Complaint: ABD PAIN | LOWER BACK PAIN Nursing Triage Note: PT AMB TO [facility] WITH COMPLAINT OF LOW BACK PAIN,ABD PAIN, UNABLE TO URINATE. STATES SHE FEELS LIKE SHE HAS A KIDNEY STONE. STATES TRIED TO PEE THIS MORNING AND THE PAIN CAUSED HER TO PASS OUT Source of Information: Patient Exam Limitations: No Limitations History of Present Illness Date Seen by Provider: Aug 25, 2023 Time Seen by Provider: 08:07 Initial Comments 27-year-old female presents emergency department today for suprapubic abdominal pain. Symptoms started about 10 PM last night when she was having sex with her . It felt like pain that she had had in the past with kidney stones. She went to the restroom and tried to urinate and had severe pain with urination which actually caused her to lose consciousness briefly became diaphoretic during that time as well. She tried to urinate once again this morning and states had severe pain and was unable to pee. He denies any fevers or chills. Last menstrual cycle was 08/06 and normal in timing, duration. denies any changes in her bowel movements. She does have a history of endometriosis but states this pain is different than her typical pain with this. Lower systems reviewed and negative except for HPI Allergies and Home Medications Allergies Coded Allergies: diphenhydramine (Verified Adverse Reaction, Unknown, 11/04/21) STATES SIGNIFICANTLY LOWERS HEART RATE Patient Home Medication List Home Medication List Reviewed: Yes Cephalexin (Cephalexin) 500 Mg Tablet, 500 MG PO TID Prescribed by: GILLIAN JUNG on 03/19/22 1258 Hydrocodone/Acetaminophen (Hydrocodone-Acetamin 5-325 mg) 5 Mg-325 Mg Tablet, 1- 2 TAB PO Q4H PRN for PAIN-MODERATE (5-7) Prescribed by: GILLIAN JNUG on 03/19/22 1258 Ibuprofen (Ibuprofen) 600 Mg Tablet, 600 MG PO Q6H Prescribed by: MELVA GOLDSMITH on 05/17/19 0906 Ondansetron (Ondansetron Odt) 4 Mg Tab.rapdis, 4 MG SL Q4H PRN for NAUSEA/VOMITING Prescribed by: GILLIAN JUNG on 03/19/22 1258 Promethazine HCl (Promethazine Tablet) 25 Mg Tablet, 25 MG PO Q6H PRN for NAUS EA/VOMITING-2ND LINE Prescribed by: GILLIAN JUNG on 03/19/22 6008 Review of Systems Review of Systems Constitutional: see HPI Past Psakzko-Zwepft-Ddqpuo Hx Patient Social History Tobacco Use?: No Use of E-Cig and/or Vaping dev: No Substance use?: No Alcohol Use?: No Pt feels they are or have been: No Immunizations Up To Date First/Initial COVID19 Vaccinat: unknown Second COVID19 Vaccination Roman: unknown Third COVID19 Vaccination Date: unknown Seasonal Allergies Seasonal Allergies: Yes Past Medical History Surgeries: Yes (SPINAL FUSION, REMOVAL OF HARDWARE,LAPAROSCOPY,CHROMOTUBATION) Orthopedic Respiratory: No Cardiac: No Neurological: No Reproductive Disorders: No Female Reproductive Disorders: Endometriosis, Ovarian Cyst Sexually Transmitted Disease: No HIV/AIDS: No Genitourinary: No Gastrointestinal: Yes Gastroesophageal Reflux, Chronic Constipation, Chronic Diarrhea Musculoskeletal: Yes Scoliosis, Chronic Back Pain Endocrine: No HEENT: Yes (GLASSES/CONTACTS) Loss of Vision: Denies Hearing Impairment: Denies Cancer: No Psychosocial: Yes Anxiety Integumentary: No Blood Disorders: Yes (HX ANEMIA) Adverse Reaction/Blood Tranf: No (HAS HAD BLOOD WITH NO REACTION) Physical Exam Vital Signs Vital Signs - First Documented 08/25/23 08:02 Temp 36.1 Pulse 75 Resp 16 B/P (MAP) 130/76 (94) Pulse Ox 98 O2 Delivery Room Air Capillary Refill : Less Than 3 Seconds Height/Weight/BMI Height: 5'2.00" Weight: 180lbs. 0.0oz. 81.894708pv; 27.00 BMI Method:Stated General Appearance: WD/WN, no apparent distress HEENT: normal ENT inspection, pharynx normal Neck: non-tender, supple Respiratory: chest non-tender, lungs clear, normal breath sounds, no respiratory distress, no accessory muscle use Cardiovascular: regular rate, rhythm, no murmur Gastrointestinal: normal bowel sounds, soft, no organomegaly, tenderness (Mild tenderness in the suprapubic region, right mid abdomen without any rebound or guarding. No mass organomegaly. No skin changes) Extremities: normal range of motion, non-tender, normal inspection, normal capillary refill Neurologic/Psychiatric: alert, oriented x 3 Skin: normal color, warm/dry Progress/Results/Core Measures Results/Orders Lab Results Laboratory Tests Test 08/25/23 08:22 08/25/23 08:29 Range/Units White Blood Count 8.3 4.3-11.0 10^3/uL Red Blood Count 4.64 3.80-5.11 10^6/uL Hemoglobin 14.8 11.5-16.0 g/dL Hematocrit 43 35-52 % Mean Corpuscular Volume 92 80-99 fL Mean Corpuscular Hemoglobin 32 25-34 pg Mean Corpuscular Hemoglobin Concent 35 32-36 g/dL Red Cell Distribution Width 12.9 10.0-14.5 % Platelet Count 281 130-400 10^3/uL Mean Platelet Volume 9.0 9.0-12.2 fL Immature Granulocyte % (Auto) 0 % Neutrophils (%) (Auto) 67 42-75 % Lymphocytes (%) (Auto) 22 12-44 % Monocytes (%) (Auto) 8 0-12 % Eosinophils (%) (Auto) 2 0-10 % Basophils (%) (Auto) 1 0-10 % Neutrophils # (Auto) 5.6 1.8-7.8 10^3/uL Lymphocytes # (Auto) 1.9 1.0-4.0 10^3/uL Monocytes # (Auto) 0.7 0.0-1.0 10^3/uL Eosinophils # (Auto) 0.2 0.0-0.3 10^3/uL Basophils # (Auto) 0.0 0.0-0.1 10^3/uL Immature Granulocyte # (Auto) 0.0 0.0-0.1 10^3/uL Sodium Level 138 135-145 MMOL/L Potassium Level 4.3 3.6-5.0 MMOL/L Chloride Level 107 98-107 MMOL/L Carbon Dioxide Level 24 21-32 MMOL/L Anion Gap 7 5-14 MMOL/L Blood Urea Nitrogen 12 7-18 MG/DL Creatinine 0.75 0.60-1.30 MG/DL Estimat Glomerular Filtration Rate 112 BUN/Creatinine Ratio 16 Glucose Level 105 70-105 MG/DL Calcium Level 9.7 8.5-10.1 MG/DL Corrected Calcium 9.4 8.5-10.1 MG/DL Total Bilirubin 0.6 0.1-1.0 MG/DL Aspartate Amino Transf (AST/SGOT) 13 5-34 U/L Alanine Aminotransferase (ALT/SGPT) 15 0-55 U/L Alkaline Phosphatase 55 40-136 U/L Total Protein 7.6 6.4-8.2 GM/DL Albumin 4.4 3.2-4.5 GM/DL Serum Test, Qualitative NEGATIVE NEGATIVE Urine Color ORANGE Urine Clarity CLEAR Urine pH 6.0 5-9 Urine Specific [place] 1.025 H 1.016-1.022 Urine Protein NEGATIVE NEGATIVE Urine Glucose (UA) NEGATIVE NEGATIVE Urine Ketones NEGATIVE NEGATIVE Urine Nitrite NEGATIVE NEGATIVE Urine Bilirubin NEGATIVE NEGATIVE Urine Urobilinogen 0.2 < = 1.0 MG/DL Urine Leukocyte Esterase NEGATIVE NEGATIVE Urine RBC (Auto) NEGATIVE NEGATIVE Urine RBC 0-2 /HPF Urine WBC RARE /HPF Urine Squamous Epithelial Cells 0-2 /HPF Urine Crystals NONE /LPF Urine Leucine Crystals /LPF Urine Bacteria FEW H /HPF Urine Casts NONE /LPF Urine Mucus NEGATIVE /LPF Urine Culture Indicated YES My Orders Orders - KIA REYES DO Ct Abd/Pelvis Wo(Kidney Stone) (08/25/23 08:06) Cbc And Automated Diff (08/25/23 08:06) Comprehensive Metabolic Panel (08/25/23 08:06) Ua Culture If Indicated (08/25/23 08:06) Urine Bedside (08/25/23 08:06) Ns Iv 1000 Ml (Ns Iv 1000 Ml) (08/25/23 08:13) Iv/Invasive Line Insertion .IV INSERT (08/25/23 08:13) Urine Culture (08/25/23 08:29) Hcg,Qualitative Serum (08/25/23 09:18) Us Non Ob Pelvis Comp/Transvag (08/25/23 09:19) Vital Signs/I&O 08/25/23 08:02 Temp 36.1 Pulse 75 Resp 16 B/P (MAP) 130/76 (94) Pulse Ox 98 O2 Delivery Room Air Blood Pressure Mean: 94 Departure Communication (Admissions) Patient is hemodynamically stable with only very minimal pain on exam at present. She has a nonsurgical abdomen. CT scan revealed some fullness in the left adnexal region. Recommended ultrasound. Ultrasound obtained which shows left hydrosalpinx. No evidence for torsion, ectopic and test is negative. I spoke with Dr. GOLDSMITH he recommends follow-up in the clinic within the next week given she has very mild symptoms at this time. The patient is comfortable agreeable this plan of care. She is discharged in stable condition Impression Primary Impression: Hydrosalpinx Disposition: 01 HOME, SELF-CARE Condition: Stable Departure-Patient Inst. Referrals: MELVA GOLDSMITH DO NO,LOCAL PHYSICIAN (PCP) Primary Care Physician Add. Discharge Instructions: As discussed you have some bleeding around your left fallopian tube. There is good blood flow to the ovary appears normal. I spoke with Dr. GOLDSMITH who recommends follow-up in his clinic. Use ibuprofen and Tylenol for pain. Use hydrocodone as needed for any breakthrough pain. To the emergency department for any severe concerns All discharge instructions reviewed with patient and/or family. Voiced understanding. Scripts Hydrocodone/Acetaminophen (Hydrocodone-Acetamin 5-325 mg) 5 Mg-325 Mg Tablet 1 TAB PO Q4H PRN for PAIN-MODERATE (5-7) for 3 Days, #12 TAB Prov: KIA REYES DO 08/25/23 KIA REYES DO Aug 25, 2023 08:18
[2023-08-25 08:29] LABS: BASOPHILS % (AUTO) 1 % (0-10); EOSINOPHILS # (AUTO) 0.2 10^3/uL (0.0-0.3); EOSINOPHILS % (AUTO) 2 % (0-10); HEMATOCRIT 43 % (35-52); HEMOGLOBIN 14.8 g/dL (11.5-16.0); LYMPHOCYTES # (AUTO) 1.9 10^3/uL (1.0-4.0); LYMPHOCYTES % (AUTO) 22 % (12-44); MEAN CORPUSCULAR HEMOGLOBIN 32 pg (25-34); MEAN CORPUSCULAR HGB CONC 35 g/dL (32-36); MEAN CORPUSCULAR VOLUME 92 fL (80-99); MONOCYTES # (AUTO) 0.7 10^3/uL (0.0-1.0); MONOCYTES % (AUTO) 8 % (0-12); NEUTROPHILS # (AUTO) 5.6 10^3/uL (1.8-7.8); NEUTROPHILS % (AUTO) 67 % (42-75); PLATELET COUNT 281 10^3/uL (130-400); WHITE BLOOD COUNT 8.3 10^3/uL (4.3-11.0)
[2023-08-25 08:38] LABS: ALBUMIN 4.4 GM/DL (3.2-4.5)
[2023-08-25 08:39] LABS: POTASSIUM 4.3 MMOL/L (3.6-5.0)
[2023-08-25 08:40] LABS: CALCIUM 9.7 MG/DL (8.5-10.1)
[2023-08-25 08:41] LABS: TOTAL PROTEIN 7.6 GM/DL (6.4-8.2)
[2023-08-25 08:43] LABS: BILIRUBIN,TOTAL 0.6 MG/DL (0.1-1.0)
[2023-08-25 08:45] LABS: CREATININE SERUM 0.75 MG/DL (0.60-1.30)
[2023-08-25 08:54] LABS: CLARITY,URINE CLEAR; COLOR,URINE ORANGE
[2023-08-25 08:55] LABS: BACTERIA,URINE FEW /HPF; BILIRUBIN,URINE NEGATIVE (NEGATIVE); GLUCOSE, URINE (UA) NEGATIVE (NEGATIVE); KETONES,URINE NEGATIVE (NEGATIVE); LEUKOCYTE ESTERASE ,URINE NEGATIVE (NEGATIVE); NITRITE,URINE NEGATIVE (NEGATIVE); PROTEIN,URINE NEGATIVE (NEGATIVE); RBC,URINE 0-2 /HPF; SQUAMOUS EPITHELIAL CELL,UR 0-2 /HPF; WBC,URINE RARE /HPF
--- NOTE | 2023-08-25 09:19 | Diagnostic Imaging Report ---
EXAMINATION: CT abdomen and pelvis without contrast. TECHNIQUE: Multiple contiguous axial images were obtained through the abdomen and pelvis without the use of intravenous contrast. All CT scans use one or more of the following dose optimizing techniques: automated exposure control, MA and/or KvP adjustment based on patient size and exam type or iterative reconstruction. HISTORY: Suprapubic pain COMPARISON: 03/19/2022 FINDINGS: Limited views of the lower thorax are unremarkable. The liver is normal without focal lesion. There is no biliary ductal dilation. Gallbladder is normal. Pancreas is normal. Spleen is normal. Adrenal glands are normal. There are nonobstructing bilateral renal stones measuring 2 to 3 mm. No ureteral stone. There is no hydronephrosis. Urinary bladder is normal. The left adnexa is enlarged. There is a linear hyperattenuating focus extending from the uterus towards the adnexa which may represent hematosalpinx. There are surrounding stranding about the uterus and left ovary. Bowel is normal in caliber without obstruction or inflammation. No free fluid or air. No abdominal or pelvic lymphadenopathy. Aorta is normal in caliber without aneurysm. There are no suspicious osseus lesions. IMPRESSION: 1. Enlarged left adnexa with high attenuating focus extending from the uterus towards the adnexa possibly representing hematosalpinx. There is surrounding stranding about the uterus and left ovary. Pelvic sonogram recommended for better evaluation of the uterus and left adnexa as the differential includes torsion and ectopic . Report was called to [facility] ER Dr. Zaman, by ligia at 9:20AM. Dictated by: Dictated on workstation # [id number]
[2023-08-25] MEDS ORDERED: ACHD5005 PO (11:22)
--- NOTE | 2023-08-25 11:26 | Diagnostic Imaging Report ---
PROCEDURE: Pelvic comp/transvaginal sonogram. TECHNIQUE: Complete transabdominal and transvaginal pelvic ultrasound was performed. In addition, limited pelvic Doppler was performed. INDICATION: Suprapubic pain and abnormal CT scan in the left adnexa. Study is performed for further evaluation. COMPARISON: Comparison is made with the CT study performed earlier the same day. FINDINGS: Uterus is anteverted measuring 9.2 x 4.0 x 6.0 cm. Endometrium is 11 mm in thickness. No myometrial mass is identified. Right ovary measures 3.3 x 2.7 x 2.3 cm and left ovary measures 3.8 x 3.6 x 3.5 cm. Both ovaries contain small follicles. Both ovaries demonstrate blood flow. There is a complex hypoechoic mass in the left adnexa approximately 2 cm in size which does appear to be separate from the left ovary. There is some surrounding fluid in the left adnexa as well as superior to uterus which does show some internal complexity, consistent with either blood or pus. A hypoechoic density could potentially represent blood clot. No definite fluid-filled tubular structure is identified by ultrasound to suggest hydrosalpinx or hematosalpinx. IMPRESSION: There is moderate free fluid in the pelvis which does show complexity and is concerning for blood or pus. There is also a 2 cm nonvascular mass in the left adnexa which may represent blood clot but other etiologies cannot be excluded. No definite hydrosalpinx or hematosalpinx is identified. No other significant abnormality is detected. Dictated by: Dictated on workstation # [id number]
[2023-08-25 11:35] VITALS: BP 110/72
== END 2023-08-25 11:37 | disposition home or self-care (01) ==
LOC: EDUNIT# 07:45 → ER 07:52
DX: N70.11 Chronic salpingitis (principal)
CPT/HCPCS: 36415; 74176; 76830; 76856; 80053; 81000; 84703; 85025; 87088; 96360